=== PATIENT | female | born 1935 | race Caucasian/White ===

== ENCOUNTER 2019-02-24 21:29 | Observation (INO) ==
--- NOTE | 2019-02-24 22:09 | Emergency Department Note ---
ED Disposition Clinical Impression: Elevated troponin Dyspnea Qualifiers: Dyspnea type: dyspnea on exertion Qualified Code(s): R06.09 - Other forms of dyspnea Disposition: Admitted as Observation Condition on Discharge: Good - Critical Care Critical Care Time: No Attestation: On 02/24/19, the high probability of a clinically significant, sudden or life threatening deterioration of the following system(s) required my full and direct attention, intervention and personal management. The time I documented below is in addition to time spent performing reported procedures but includes the following listed in this critical care notation. Medical Decision Making - Medical Records Medical records reviewed: Yes: I reviewed the patient's medical records. - Emeterio Inquiry Pt receiving controlled substance: No Vital Signs: 02/24/19 21:52 Temperature 97.6 F Temperature Source Oral Pulse Rate [Right] 98 H Respiratory Rate 18 Blood Pressure [Right Arm] 137/70 Blood Pressure Mean [Right Arm] 92 Blood Pressure Source [Right Arm] Automatic Cuff Blood Pressure Position [Right Arm] Supine 02 Sat by Pulse Oximetry 95 Oxygen Delivery Method Room Air - Lab Data Lab results reviewed: Yes: I reviewed the patient's lab results. Lab Results 02/24/19 22:13: Specimen Source Right radial, O2 % Room air, ABG pH 7.47 H, ABG pCO2 26.7 L, ABG pO2 57.2 L, ABG HCO3 19.2 L, ABG Total CO2 20.0 L, ABG O2 Saturation 91, ABG Base Excess -4.4 L, Remigio Test Acceptable 02/24/19 22:35: Urine Color Yellow, Urine Appearance Clear, Urine pH 7.0, Ur Specific [place] 1.010, Urine Protein Negative, Urine Glucose (UA) Negative, Urine Ketones Negative, Urine Blood Negative, Urine Nitrate Negative, Urine Bilirubin Negative, Urine Urobilinogen 0.2, Ur Leukocyte Esterase Negative, Urine WBC Occasional, Ur Squamous Epith Cells 3-5, Urine Bacteria Trace 02/24/19 23:25: WBC 6.9, RBC 4.28, Hgb 13.5, Hct 42.1, MCV 98.4, MCH 31.5 H, MCHC 32.0, RDW 14.4, Plt Count 229, MPV 7.9, Neut % (Auto) 84.9 H, Lymph % (Auto) 10.6, [place] % (Auto) 4.4, Eos % (Auto) 0.0 L, Baso % (Auto) 0.0 L, Neut # (Auto) 5.8, Lymph # (Auto) 0.7, [place] # (Auto) 0.3, Eos # (Auto) 0.0, Baso # (Auto) 0.0, ESR 44 H 02/24/19 23:25: Sodium 142, Potassium 4.5, Chloride 107, Carbon Dioxide 25, Anion Gap 14.5, BUN 18, Creatinine 1.00, Estimated Creat Clear 63, Estimated GFR 53 L, Est GFR ( Amer) 64, Glucose 133 H, Calcium 9.9, Total Bilirubin 0.5, AST 31, ALT 34, Alkaline Phosphatase 90, Troponin I 0.37 H, C-Reactive Protein 1.5 H, Total Protein 7.2, Albumin 3.1 L, Globulin 4.1 H, [place] min/Globulin Ratio 0.8 L 02/24/19 23:25: B-Natriuretic Peptide 460 H Result diagrams: 02/24/19 23:25 02/24/19 23:25 Orders (Tests/Meds): ED MEDICATIONS Discontinued Medications Generic Name Dose Route Start Last Admin Trade Name Freq PRN Reason Stop Dose Admin Enoxaparin Sodium 100 mg 02/25/19 01:33 02/25/19 01:49 Lovenox 100mg/Ml Syringe SQ 02/25/19 01:34 100 mg ONCE ONE Administration Furosemide 40 mg 02/25/19 00:52 02/25/19 01:05 Lasix 40mg/4ml Vial IV 02/25/19 00:53 Not Given ONCE ONE ORDERS Category Date Time Status CT cervical spine wo con Stat Cat Scan 02/24/19 22:[address] head/brain wo con Stat Cat Scan 02/24/19 22:08 Taken XR chest AP Stat Exams 02/24/19 22:08 Taken XR pelvis 1-2V Stat Exams 02/24/19 22:08 Taken - Radiology Data #1 Image(s): Chest, Pelvis Image Reviewed: Yes I reviewed the patient's radiology image Preliminary Findings: No Fracture Seen - CT Data CT Scan: Head, C-Spine Time Received: 23:[address] Reviewed: Yes: I have viewed the radiologist's interpretation Preliminary Findings: Abnormal, No Fracture Seen (spondylosis) - ECG Data Tracing #1 Normal Sinus Rhythm: Yes Ischemic changes: non-specific ST-T wave changes - Physician Consults Physician Consulted: benjamin Reason -: Admission Resp/SOB HPI - General Chief Complaint: Shortness of Breath/Dyspnea Stated Complaint: SOB Time Seen by Provider: 02/24/19 21:55 Mode of Arrival: Ambulatory Source of Information: Patient Limitations: No Limitations Description of Symptoms (Recalled from ER Triage Doc. by RN): Pt states she had a syncopal episode this AM and SOA since this AM, pt seen by Dr alexander today and sent home with RX. Pt states she continues to have SOA - History of Present Illness pt had syncopal episode this am and was seen by pcp - she has sob this pm and had cxr as op and was neg and had sob with exertion tonight w/o syncope or chest pain and no fever or prod cough - had neg cath last yr - MD Complaint: shortness of breath Onset (ago): day(s) Severity: moderate Consistency/Duration: intermittent Known history of: asthma Associated symptoms: syncope Treatment prior to arrival: none - Related Data Home oxygen amount: none Home Medications Medication Instructions Recorded Confirmed allopurinol 300 mg tablet 300 mg PO DAILY 04/28/18 02/25/19 aspirin 81 mg tablet,delayed 81 mg PO DAILY 04/28/18 02/25/19 release atorvastatin 10 mg tablet 10 mg PO DAILY 04/28/18 02/25/19 coenzyme Q10 100 mg capsule 100 mg PO DAILY 04/28/18 02/25/19 conjugated estrogens 0.3 mg tablet 0.3 mg PO DAILY 04/28/18 02/25/19 dexlansoprazole 60 mg 30 mg PO DAILY 04/28/18 02/25/19 capsule,biphase delayed release fentanyl 25 mcg/hr transdermal 1 patch TRANSDERMA Q72H 04/28/18 02/25/19 patch ferrous sulfate 325 mg (65 mg 325 mg PO DAILY tab 04/28/18 02/25/19 iron) tablet gabapentin 300 mg capsule 600 mg PO BID 04/28/18 02/25/19 irbesartan 150 mg tablet 150 mg PO DAILY 04/28/18 02/25/19 levothyroxine 25 mcg tablet 25 mcg PO DAILY 04/28/18 02/25/19 mecobalamin (vitamin B12) 1,000 1,000 mcg SUBLINGUAL DAILY 04/28/18 02/25/19 mcg disintegrating tablet,sublingual mirabegron ER 50 mg 50 mg PO DAILY 04/28/18 02/25/19 tablet,extended release 24 hr montelukast 10 mg tablet 10 mg PO QPM 04/28/18 02/25/19 polyethylene glycol 3350 17 gram 17 g PO DAILY 04/28/18 02/25/19 oral powder packet potassium chloride ER 10 mEq 10 meq PO DAILY 04/28/18 02/25/19 tablet,extended release torsemide 20 mg tablet 20 mg PO DAILY 04/28/18 02/25/19 verapamil ER 240 mg 24 hr 240 mg PO DAILY 04/28/18 02/25/19 capsule,extended release raNITIdine HCl [Zantac] 150 mg PO DAILY 05/01/18 02/25/19 Doxercalciferol 0.5 mg PO DAILY 08/01/18 02/25/19 Donepezil HCl [Aricept 10mg 10 mg PO HS 02/25/19 02/25/19 tablet] Allergies Allergy/AdvReac Type Severity Reaction Status Date / Time bacitracin Allergy Mild I-RASH Verified 08/01/18 12:35 [From Neosporin ([id number])] chlorhexidine Allergy Mild I-RASH Verified 08/01/18 12:35 [From Hibiclens] clarithromycin [From Biaxin] Allergy Mild I-RASH Verified 08/01/18 12:35 ipratropium [From Atrovent] Allergy Mild Verified 08/01/18 12:35 neomycin Allergy Mild I-RASH Verified 08/01/18 12:35 [From Neosporin ([id number])] nitrofurantoin Allergy Mild ANAPHYLAXIS Verified 08/01/18 12:35 [From Macrodantin] paricalcitol [From Zemplar] Allergy Mild I-RASH Verified 08/01/18 12:35 Penicillins Allergy Mild ANAPHYLAXIS Verified 08/01/18 12:35 polymyxin B Allergy Mild I-RASH Verified 08/01/18 12:35 [From Neosporin ([id number])] povidone-iodine Allergy Mild I-RASH Verified 08/01/18 12:35 [From Betadine] soap [From Betadine] Allergy Mild I-RASH Verified 08/01/18 12:35 Sulfa (Sulfonamide Allergy Mild HEADACHES,R Verified 08/01/18 12:35 Antibiotics) DENZEL latex [LATEX] Allergy Unknown I-RASH Verified 08/01/18 12:35 trazodone Allergy Weakness Verified 08/01/18 12:36 Nuts (Food) Allergy Mild ANAPHYLAXIS Uncoded 06/23/18 10:11 [facility] History - Hepatitis A Screen Drug use history?: No High risk sexual behaviors?: No History of sexually transmitted infection?: No Currently employed?: No Childcare worker?: No Do you have indoor plumbing?: Yes Do you have electricity?: Yes Attestation statement:: This patient has been screened for Hepatitis A risk factors. I have reviewed the patient's past medical history: Yes Medical History: Reports:: Asthma, Chronic Obstructive Pulmonary Disease (COPD), Gastroesophageal Reflux Disease(GERD), Hyperlipidemia, Hypertension, Lung Disease, Renal Disease, Transient Ischemic Attacks (TIA), Ulcer Denies:: Diabetes Mellitus Type 1, Diabetes Mellitus Type 2, Internal Pacemaker, Seizures Other Medical History: Reports: Arthritis Comment: Morbid obesity, SCOTT Laterality Cases: Right: Carpal Tunnel Release, Bilateral: Arthroscopy Shoulder, Total Knee Replacement Other Surgeries: Yes: Cardiac Catheterization, Cholecystectomy, Hysterectomy- Partial. No: Pacemaker Comment: Back rx, TSR (shoulder) - Social History Smoking Status: Former smoker # Packs/Day (cigarettes): 1 #Yrs smoked (if former smoker): 4 Alcohol Intake: never Occupational Status: other Family Hx:: Tuberculosis, Coronary Artery Disease, Hypertension, Hyperlipidemia, Cancer ROS Obtained: Yes All systems reviewed & no additional complaints - Constitutional Constitutional: Denies fever(s) - Eyes Eyes: Denies change in vision - ENT Ears, Nose, Mouth, and Throat: Denies sore throat - Cardiovascular Cardiovascular: Denies chest pain, Reports dyspnea - Respiratory Respiratory: No cough, No non-productive cough, Yes dyspnea, Yes dyspnea on exertion, No coughing up blood, No pain on inspiration - Gastrointestinal Gastrointestingal: Denies: abdominal pain - Genitourinary Female Genitourinary: Denies hematuria - Musculoskeletal Musculoskeletal: Denies joint pain, Denies joint swelling - Integumentary/Breasts Skin/Breast: Denies rash - Neurologic Neurologic: Denies seizure-like activity Physical Exam - General General appearance: alert - Head Head exam: normocephalic - Eye Eye exam: Present: PERRL, EOMI - ENT ENT exam: Present: mucous membranes moist - Neck Neck exam: Present: trachea midline - Respiratory Respiratory exam: Present: normal lung sounds bilaterally. Absent: respiratory distress - Cardiovascular Cardiovascular exam: Present: regular rate, systolic murmur, +S4. Absent: rubs - Abdominal Exam Abdominal exam: Present: soft - Extremities Exam Extremities exam: Present: full ROM, pedal edema. Absent: calf tenderness - Neurological Exam Neurological exam: Present: alert, oriented X3, CN II-XII intact - Psychiatric Psychiatric exam: Present: normal affect - Skin Skin exam: Absent: rash
[2019-02-24 22:26] LABS: ABG Base Excess -4.4 mmol/L (-2.4-2.3); ABG HCO3 19.2 mmhg (22.0-26.0); ABG Oxygen Saturation 91 % (90-100); ABG PCO2 26.7 mmhg (35.0-45.0); ABG PH 7.47 mmol/L (7.35-7.45); ABG PO2 57.2 mmhg (80-100)
[2019-02-24 22:27] LABS: Allen's Test Acceptable; Oxygen Room Air %
[2019-02-24 22:40] LABS: Microscopic, Urine URINE MICROSCOPIC (MICROSCOPIC)
[2019-02-24 22:43] LABS: Appearance,Urine CLEAR (Clear); Bilirubin,Urine Negative (Negative); Blood, Urine Negative (Negative); Color,Urine YELLOW (Yellow); Glucose,Urine (UA) Negative (Negative); Ketones,Urine Negative (Negative); Leukocyte Esterase,Urine Negative (Negative); Protein,Urine Negative (Negative); Urobilinogen,Urine 0.2 EU/dl (0.2)
[2019-02-24 22:51] LABS: Bacteria,Urine Trace /lpf; WBC,Urine Occasional #/hpf (0-3)
[2019-02-24 23:35] LABS: Hematocrit 42.1 % (37.0-47.0); Hemoglobin 13.5 g/dL (12.2-16.2); Lymphocytes # 0.7 K/mm3 (0.7-4.5); Lymphocytes % 10.6 % (10-50); Mean Corpuscular Volume 98.4 fl (81-99); Mean Platelet Volume 7.9 fl (7.4-10.4); Monocytes # 0.3 K/mm3 (0.1-1.0); Monocytes % 4.4 % (1.7-9.3); Neutrophils # 5.8 K/mm3 (1.8-7.8); Neutrophils % 84.9 % (37.0-80.0); Platelet Count 229 K/mm3 (142-424); Red Blood Count 4.28 M/mm3 (4.20-5.40); Red Cell Distribution Width 14.4 % (11.5-17.5); White Blood Count 6.9 K/mm3 (4.8-10.8)
[2019-02-24 23:57] LABS: Albumin Level 3.1 gm/dL (3.4-5.0); Albumin/Globulin Ratio 0.8 (1.1-1.8); Anion Gap 14.5 mEq/L (5-15); Bilirubin,Total 0.5 mg/dL (0.2-1.0); C-Reactive Protein 1.5 mg/dL (0.0-0.9); Calcium 9.9 mg/dL (8.5-10.1); Globulin 4.1 gm/dl (1.3-3.2); Total Protein,Serum 7.2 gm/dL (6.4-8.2)
[2019-02-25 00:07] LABS: Erythrocyte Sedimentation Rate 44 mm/hr (0-30)
[2019-02-25 06:07] LABS: Hematocrit 38.6 % (37.0-47.0); Hemoglobin 12.5 g/dL (12.2-16.2); Lymphocytes # 1.2 K/mm3 (0.7-4.5); Lymphocytes % 14.3 % (10-50); Mean Corpuscular HGB Conc 32.5 g/dL (31.8-35.4); Mean Corpuscular Volume 99.1 fl (81-99); Mean Platelet Volume 7.8 fl (7.4-10.4); Monocytes # 0.4 K/mm3 (0.1-1.0); Monocytes % 5.4 % (1.7-9.3); Neutrophils # 6.5 K/mm3 (1.8-7.8); Neutrophils % 80.3 % (37.0-80.0); Platelet Count 205 K/mm3 (142-424); Red Cell Distribution Width 14.4 % (11.5-17.5); White Blood Count 8.1 K/mm3 (4.8-10.8)
[2019-02-25 06:23] LABS: INR 1.03 (0.9-1.1); Prothrombin Time 10.7 seconds (9.4-11.8)
[2019-02-25 06:32] LABS: Anion Gap 12.7 mEq/L (5-15); Calcium 9.2 mg/dL (8.5-10.1)
--- NOTE | 2019-02-25 08:44 | History & Physical Report ---
*Admission Date: 02/25/19 *Chief complaint: shortness of breath *History of present illness: Patient is a 83 year old woman who presented to our clinic yesterday with some weakness and dizziness. She was also having SOB episodes. She received a breathing treatment, steroids and abx in the clinic. CXR obtained at that time was unremarkable. However, she started to feel progressively worse and came to our ED yesterday night and was not feeling well. Work-up in the ED was unremarkable as well. However, there is a concern for PE given her moderate risk. CT was not obtainable in the ED secondary to nnot having venous access. So patient was admitted after loading dose of lovenox. During rounds this am, patient seems to be doing well. I will obtain CT of chest with PE protocol and US of carotid to rule out any pathological disease. Will give her Bumex for peripheral edema as she is allergic to lasix. [facility] History I have reviewed the patient's past medical history: Yes Medical History: Reports:: Asthma, Congestive Heart Failure, Chronic Obstructive Pulmonary Disease (COPD), Gastroesophageal Reflux Disease(GERD), Hyperlipidemia, Hypertension, Lung Disease, Renal Disease, Transient Ischemic Attacks (TIA), Ulcer Denies:: Cancer, Diabetes Mellitus Type 1, Diabetes Mellitus Type 2, Internal Pacemaker, MRSA, Seizures *Have you ever received a pneumonia vaccine?: No *Have you received a flu vaccine this season?: Yes Other Medical History: Reports: Arthritis Laterality Cases: Right: Arthroscopy Hip, Carpal Tunnel Release, Bilateral: Arthroscopy Shoulder, Total Knee Replacement Other Surgeries: Yes: Cardiac Catheterization, Cholecystectomy, Hysterectomy- Partial. No: Pacemaker Amputation: No Fractures: Yes - *Social History Smoking Status: Former smoker Tobacco Type: cigarettes # Packs/Day (cigarettes): 1 #Yrs smoked (if former smoker): 4 Alcohol Intake: never *Occupational Status:: other *Travel in the last 8 weeks: None - Psychiatric History Expresses thoughts of harming self/others: None Suicide Plan Description: No Plan Family Hx:: Asthma, Coronary Artery Disease, Hyperlipidemia, Hypertension, Kidney Disease, Stroke Review of Systems - Constitutional Reports lack of energy, Reports weakness - Eyes Denies change in vision, Denies itchy eyes - ENT Reports dry mouth, Denies change in voice, Denies difficulty swallowing - *Cardiovascular Reports shortness of breath, Reports shortness of breath with activity, Denies chest pain, Denies chest pain at rest, Denies chest pain with activity - *Respiratory Reports shortness of breath, Reports shortness of breath with activity, Denies change in phlegm color, Denies chest congestion, Denies cough - *Gastrointestinal Denies abdominal pain, Denies coffee ground vomit, Denies constipation - *Genitourinary Denies painful urination - *Musculoskeletal Reports joint pain (diffuse and multiple) - Integumentary/Breasts Denies bleeding lesions - *Neurologic Denies abnormal hearing, Denies seizure-like activity - Psychiatric Denies lack of enjoyment, Denies anxiety - Endocrine Denies excessive sweating - Hematologic/Lymphatic Denies easy bruising - Allergic/Immunologic Denies lip swelling Meds Home Medications Medication Instructions Recorded Confirmed Type allopurinol 300 mg tablet 300 mg PO DAILY 04/28/18 02/25/19 History aspirin 81 mg tablet,delayed 81 mg PO DAILY 04/28/18 02/25/19 History release coenzyme Q10 100 mg capsule 100 mg PO DAILY 04/28/18 02/25/19 History conjugated estrogens 0.3 mg tablet 0.3 mg PO DAILY 04/28/18 02/25/19 History fentanyl 25 mcg/hr transdermal 1 patch TRANSDERMA Q72H 04/28/18 02/25/19 History patch ferrous sulfate 325 mg (65 mg 325 mg PO DAILY tab 04/28/18 02/25/19 History iron) tablet irbesartan 150 mg tablet 150 mg PO DAILY 04/28/18 02/25/19 History levothyroxine 25 mcg tablet 25 mcg PO DAILY 04/28/18 02/25/19 History mecobalamin (vitamin B12) 1,000 1,000 mcg SUBLINGUAL DAILY 04/28/18 02/25/19 Hi story mcg disintegrating tablet,sublingual mirabegron ER 50 mg 50 mg PO DAILY 04/28/18 02/25/19 History tablet,extended release 24 hr montelukast 10 mg tablet 10 mg PO QPM 04/28/18 02/25/19 History potassium chloride ER 10 mEq 10 meq PO DAILY 04/28/18 02/25/19 History tablet,extended release verapamil ER 240 mg 24 hr 240 mg PO DAILY 04/28/18 02/25/19 History capsule,extended release raNITIdine HCl [Zantac] 150 mg PO DAILY 05/01/18 02/25/19 History Doxercalciferol 0.5 mg PO DAILY 08/01/18 02/25/19 History Atorvastatin Calcium [Atorvastatin 10 mg PO HS 02/25/19 02/25/19 History 20mg Tab] Bumetanide 1 mg PO DAILY 02/25/19 02/25/19 History Dexlansoprazole [Dexilant] 30 mg PO DAILY 02/25/19 02/25/19 History Donepezil HCl [Aricept 10mg 10 mg PO HS 02/25/19 02/25/19 History tablet] Gabapentin 600 mg PO BID 02/25/19 02/25/19 History Polyethylene Glycol 3350 [Miralax 17 gm PO DAILY 02/25/19 02/25/19 History Powder] Allergies Allergy/AdvReac Type Severity Reaction Status Date / Time nut - unspecified Allergy Intermediate Anaphylaxis Verified 02/25/19 09:11 bacitracin Allergy Mild I-RASH Verified 08/01/18 12:35 [From Neosporin ([id number])] chlorhexidine Allergy Mild I-RASH Verified 08/01/18 12:35 [From Hibiclens] clarithromycin [From Biaxin] Allergy Mild I-RASH Verified 08/01/18 12:35 ipratropium [From Atrovent] Allergy Mild Unknown Verified 02/25/19 09:11 allergy reaction neomycin Allergy Mild I-RASH Verified 08/01/18 12:35 [From Neosporin ([id number])] nitrofurantoin Allergy Mild ANAPHYLAXIS Verified 08/01/18 12:35 [From Macrodantin] paricalcitol [From Zemplar] Allergy Mild I-RASH Verified 08/01/18 12:35 Penicillins Allergy Mild ANAPHYLAXIS Verified 08/01/18 12:35 polymyxin B Allergy Mild I-RASH Verified 08/01/18 12:35 [From Neosporin ([id number])] povidone-iodine Allergy Mild I-RASH Verified 08/01/18 12:35 [From Betadine] soap [From Betadine] Allergy Mild I-RASH Verified 08/01/18 12:35 Sulfa (Sulfonamide Allergy Mild HEADACHES,R Verified 08/01/18 12:35 Antibiotics) DENZEL latex [LATEX] Allergy Unknown I-RASH Verified 08/01/18 12:35 trazodone Allergy Weakness Verified 08/01/18 12:36 Exam Vital signs and Labs for Last 24 Hours: Temp Pulse Resp BP Pulse Ox 97.7 F 60 18 129/87 97 02/25/19 02:53 02/25/19 04:00 02/25/19 02:53 02/25/19 02:53 02/25/19 02:53 Laboratory Results - last 24 hr 02/24/19 22:13: Specimen Source Right radial, O2 % Room air, ABG pH 7.47 H, ABG pCO2 26.7 L, ABG pO2 57.2 L, ABG HCO3 19.2 L, ABG Total CO2 20.0 L, ABG O2 Saturation 91, ABG Base Excess -4.4 L, Remigio Test Acceptable 02/24/19 22:35: Urine Color Yellow, Urine Appearance Clear, Urine pH 7.0, Ur Specific [place] 1.010, Urine Protein Negative, Urine Glucose (UA) Negative, Urine Ketones Negative, Urine Blood Negative, Urine Nitrate Negative, Urine Bilirubin Negative, Urine Urobilinogen 0.2, Ur Leukocyte Esterase Negative, Urine WBC Occasional, Ur Squamous Epith Cells 3-5, Urine Bacteria Trace 02/24/19 23:25: WBC 6.9, RBC 4.28, Hgb 13.5, Hct 42.1, MCV 98.4, MCH 31.5 H, MCHC 32.0, RDW 14.4, Plt Count 229, MPV 7.9, Neut % (Auto) 84.9 H, Lymph % (Auto) 10.6, [place] % (Auto) 4.4, Eos % (Auto) 0.0 L, Baso % (Auto) 0.0 L, Neut # (Auto) 5.8, Lymph # (Auto) 0.7, [place] # (Auto) 0.3, Eos # (Auto) 0.0, Baso # (Auto) 0.0, ESR 44 H 02/24/19 23:25: Sodium 142, Potassium 4.5, Chloride 107, Carbon Dioxide 25, Anion Gap 14.5, BUN 18, Creatinine 1.00, Estimated Creat Clear 63, Estimated GFR 53 L, Est GFR ( Amer) 64, Glucose 133 H, Calcium 9.9, Total Bilirubin 0.5, AST 31, ALT 34, Alkaline Phosphatase 90, Troponin I 0.37 H, C-Reactive Protein 1.5 H, Total Protein 7.2, Albumin 3.1 L, Globulin 4.1 H, Albumin/Globulin Ratio 0.8 L 02/24/19 23:25: B-Natriuretic Peptide 460 H 02/25/19 05:20: Sodium 143, Potassium 4.7, Chloride 108 H, Carbon Dioxide 27, Anion Gap 12.7, BUN 18, Creatinine 0.87, Estimated Creat Clear 64, Estimated GFR 62, Est GFR ( Amer) 75, Glucose 119 H, Calcium 9.2, Troponin I 0.27 H 02/25/19 05:20: WBC 8.1, RBC 3.90 L, Hgb 12.5, Hct 38.6, MCV 99.1 H, MCH 32.2 H, MCHC 32.5, RDW 14.4, Plt Count 205, MPV 7.8, Neut % (Auto) 80.3 H, Lymph % (Auto) 14.3, [place] % (Auto) 5.4, Eos % (Auto) 0.0 L, Baso % (Auto) 0.0 L, Neut # (Auto) 6.5, Lymph # (Auto) 1.2, [place] # (Auto) 0.4, Eos # (Auto) 0.0, Baso # (Auto) 0.0 02/25/19 05:20: PT 10.7, INR 1.03 I & O for Last 24 hours: Intake & Output 02/22/19 02/23/19 02/24/19 02/25/19 11:59 11:59 11:59 11:59 Intake Total 161 / 161 Output Total 200 / 200 Balance -39 / -39 Weight 218 lb 4 oz - *Routine HEENT Exam Head: Present: normocephalic Eye: Present: EOMI, PERRL ENT: Present: mucous membranes moist - *Routine Neck Exam Present: supple. Absent: lymphadenopathy - *Routine Respiratory Exam Present: CTA bilaterally - *Routine Cardiovascular Exam Present: RRR - *Routine Abdominal Exam Present: soft, normoactive bowel sounds. Absent: tenderness - *Routine Extremities Exam Present: edema (2+ pitting). Absent: cyanosis, clubbing - *Routine Skin Exam Present: warm. Absent: rash - *Routine Neurological Exam Present: alert, oriented X3 Assessment and Plan (1) SOB (shortness of breath) Current visit: Yes Status: Acute Category: Medical Code(s): R06.02 - Shortness of breath (2) Chronic pain syndrome Current visit: Yes Status: Acute Category: Medical Code(s): G89.4 - Chronic pain syndrome (3) GERD (gastroesophageal reflux disease) Current visit: No Status: Acute Qualifiers: Esophagitis presence: with esophagitis Qualified Code(s): K21.0 - Gastro- esophageal reflux disease with esophagitis Category: Medical Code(s): K21.9 - Gastro-esophageal reflux disease without esophagitis (4) At high risk for pulmonary embolism Current visit: Yes Status: Acute Category: Medical Code(s): Z91.89 - Other specified personal risk factors, not elsewhere classified (5) Essential hypertension Current visit: Yes Status: Acute Category: Medical Code(s): I10 - Essential (primary) hypertension (6) Hyperlipemia Current visit: Yes Status: Acute Category: Medical Code(s): E78.5 - Hyperlipidemia, unspecified (7) Hypothyroid Current visit: Yes Status: Acute Category: Medical Code(s): E03.9 - Hypothyroidism, unspecified (8) Allergic rhinitis Current visit: Yes Status: Acute Category: Medical Code(s): J30.9 - Allergic rhinitis, unspecified (9) Peripheral edema Current visit: Yes Status: Acute Category: Medical Code(s): R60.9 - Edema, unspecified - Assessment and plan all Dx Assessment and Plan for all problems:: will continue current meds, give bumex for edema, get imaging done today. Possible dc today or tomorrow.
--- NOTE | 2019-02-25 09:36 | Pharmacy Consult Notes ---
[facility] Pharmacy VTE Monitoring - Patient Demographics Admission date: 02/25/19 Report Date: 02/25/19 Time: 09:36 Allergies/Adverse Reactions: Patient Allergies nut - unspecified Allergy (Intermediate, Verified 02/25/19 09:11) Anaphylaxis bacitracin [From Neosporin ([id number])] Allergy (Mild, Verified 08/01/18 12:35) I-RASH chlorhexidine [From Hibiclens] Allergy (Mild, Verified 08/01/18 12:35) I-RASH clarithromycin [From Biaxin] Allergy (Mild, Verified 08/01/18 12:35) I-RASH ipratropium [From Atrovent] Allergy (Mild, Verified 02/25/19 09:11) Unknown allergy reaction neomycin [From Neosporin ([id number])] Allergy (Mild, Verified 08/01/18 12:35) I-RASH nitrofurantoin [From Macrodantin] Allergy (Mild, Verified 08/01/18 12:35) ANAPHYLAXIS paricalcitol [From Zemplar] Allergy (Mild, Verified 08/01/18 12:35) I-RASH Penicillins Allergy (Mild, Verified 08/01/18 12:35) ANAPHYLAXIS polymyxin B [From Neosporin ([id number])] Allergy (Mild, Verified 08/01/18 12:35) I-RASH povidone-iodine [From Betadine] Allergy (Mild, Verified 08/01/18 12:35) I-RASH soap [From Betadine] Allergy (Mild, Verified 08/01/18 12:35) I-RASH Sulfa (Sulfonamide Antibiotics) Allergy (Mild, Verified 08/01/18 12:35) HEADACHES,RASH latex [LATEX] Allergy (Unknown, Verified 08/01/18 12:35) I-RASH trazodone Allergy (Verified 08/01/18 12:36) Weakness Height: 1.6 m Weight: 98.997 kg Patient Problems: Current Active Problems Dyspnea (Acute) Elevated troponin (Acute) - VTE Risk Labs: VTE Related Lab Results Hgb 12.5 g/dL (12.2-16.2) 02/25/19 05:20 Hct 38.6 % (37.0-47.0) 02/25/19 05:20 Plt Count 205 K/mm3 (142-424) 02/25/19 05:20 PT 10.7 seconds (9.4-11.8) 02/25/19 05:20 INR 1.03 (0.9-1.1) 02/25/19 05:20 BUN 18 mg/dL (7-18) 02/25/19 05:20 Creatinine 0.87 mg/dL (0.55-1.02) 02/25/19 05:20 Estimated Creat Clear 64 mL/min (50-200) 02/25/19 05:20 VTE Score: 12 VTE Risk Level: Moderate Risk - Prophylaxis Types of VTE Prophylaxis: TEDS Knee High (LAURA HOSE ORDER PLACED)
--- NOTE | 2019-02-25 16:09 | Discharge Summary ---
General - General Admission date:: 02/25/19 Discharge date: 02/25/19 HPI HPI: Patient is a 83 year old woman who presented to our clinic yesterday with some weakness and dizziness. She was also having SOB episodes. She received a breathing treatment, steroids and abx in the clinic. CXR obtained at that time was unremarkable. However, she started to feel progressively worse and came to our ED yesterday night and was not feeling well. Work-up in the ED was unremarkable as well. However, there is a concern for PE given her moderate risk. CT was not obtainable in the ED secondary to nnot having venous access. So patient was admitted after loading dose of lovenox. During rounds this am, patient seems to be doing well. I will obtain CT of chest with PE protocol and US of carotid to rule out any pathological disease. Will give her Bumex for peripheral edema as she is allergic to lasix. Hospital Course Hospital Course: Patient did well overnight with diuresis for her mild vascular congestion. She tolerated 96% on RA and did not qualify for oxygen during this stay. She was discharged home as all her work-up was negative here. She is to f/u with me Wednesday in office. She was advised to increase her Bumex to BID. Objective Vital signs: Temp Pulse Resp BP Pulse Ox 97.7 F 60 16 120/51 L 96 02/25/19 10:04 02/25/19 12:00 02/25/19 10:04 02/25/19 10:04 02/25/19 12:12 - *Routine HEENT Exam Head: Present: normocephalic Eye: Present: EOMI, PERRL ENT: Present: mucous membranes moist - *Routine Neck Exam Present: supple, full ROM - *Routine Respiratory Exam Present: CTA bilaterally - *Routine Cardiovascular Exam Present: RRR - *Routine Abdominal Exam Present: soft, normoactive bowel sounds - *Routine Extremities Exam Present: edema (1+ pitting edema). Absent: cyanosis - *Routine Skin Exam Present: intact. Absent: erythema - *Routine Neurological Exam Present: alert, oriented X3 Results Labs on day of discharge: Labs from last 24 hours 02/25/19 02/25/19 02/25/19 10:00 05:20 05:20 WBC 8.1 RBC 3.90 L Hgb 12.5 Hct 38.6 MCV 99.1 H MCH 32.2 H MCHC 32.5 RDW 14.4 Plt Count 205 MPV 7.8 Neut % (Auto) 80.3 H Lymph % (Auto) 14.3 [place] % (Auto) 5.4 Eos % (Auto) 0.0 L Baso % (Auto) 0.0 L Neut # (Auto) 6.5 Lymph # (Auto) 1.2 [place] # (Auto) 0.4 Eos # (Auto) 0.0 Baso # (Auto) 0.0 ESR PT 10.7 INR 1.03 Specimen Source O2 % ABG pH ABG pCO2 ABG pO2 ABG HCO3 ABG Total CO2 ABG O2 Saturation ABG Base Excess Remigio Test Sodium Potassium Chloride Carbon Dioxide Anion Gap BUN Creatinine Estimated Creat Clear Estimated GFR Est GFR ( Amer) Glucose Calcium Total Bilirubin AST ALT Alkaline Phosphatase Troponin I 0.23 H C-Reactive Protein B-Natriuretic Peptide Total Protein Albumin Globulin Albumin/Globulin Ratio Urine Color Urine Appearance Urine pH Ur Specific [place] Urine Protein Urine Glucose (UA) Urine Ketones Urine Blood Urine Nitrate Urine Bilirubin Urine Urobilinogen Ur Leukocyte Esterase Urine WBC Ur Squamous Epith Cells Urine Bacteria 02/25/19 02/24/19 02/24/19 05:20 23:25 23:25 WBC RBC Hgb Hct MCV MCH MCHC RDW Plt Count MPV Neut % (Auto) Lymph % (Auto) [place] % (Auto) Eos % (Auto) Baso % (Auto) Neut # (Auto) Lymph # (Auto) [place] # (Auto) Eos # (Auto) Baso # (Auto) ESR PT INR Specimen Source O2 % ABG pH ABG pCO2 ABG pO2 ABG HCO3 ABG Total CO2 ABG O2 Saturation ABG Base Excess Remigio Test Sodium 143 142 Potassium 4.7 4.5 Chloride 108 H 107 Carbon Dioxide 27 25 Anion Gap 12.7 14.5 BUN 18 18 Creatinine 0.87 1.00 Estimated Creat Clear 64 63 Estimated GFR 62 53 L Est GFR ( Amer) 75 64 Glucose 119 H 133 H Calcium 9.2 9.9 Total Bilirubin 0.5 AST 31 ALT 34 Alkaline Phosphatase 90 Troponin I 0.27 H 0.37 H C-Reactive Protein 1.5 H B-Natriuretic Peptide 460 H Total Protein 7.2 Albumin 3.1 L Globulin 4.1 H Albumin/Globulin Ratio 0.8 L Urine Color Urine Appearance Urine pH Ur Specific [place] Urine Protein Urine Glucose (UA) Urine Ketones Urine Blood Urine Nitrate Urine Bilirubin Urine Urobilinogen Ur Leukocyte Esterase Urine WBC Ur Squamous Epith Cells Urine Bacteria 02/24/19 02/24/19 02/24/19 23:25 22:35 22:13 WBC 6.9 RBC 4.28 Hgb 13.5 Hct 42.1 MCV 98.4 MCH 31.5 H MCHC 32.0 RDW 14.4 Plt Count 229 MPV 7.9 Neut % (Auto) 84.9 H Lymph % (Auto) 10.6 [place] % (Auto) 4.4 Eos % (Auto) 0.0 L Baso % (Auto) 0.0 L Neut # (Auto) 5.8 Lymph # (Auto) 0.7 [place] # (Auto) 0.3 Eos # (Auto) 0.0 Baso # (Auto) 0.0 ESR 44 H PT INR Specimen Source Right radial O2 % Room air ABG pH 7.47 H ABG pCO2 26.7 L ABG pO2 57.2 L ABG HCO3 19.2 L ABG Total CO2 20.0 L ABG O2 Saturation 91 ABG Base Excess -4.4 L Remigio Test Acceptable Sodium Potassium Chloride Carbon Dioxide Anion Gap BUN Creatinine Estimated Creat Clear Estimated GFR Est GFR ( Amer) Glucose Calcium Total Bilirubin AST ALT Alkaline Phosphatase Troponin I C-Reactive Protein B-Natriuretic Peptide Total Protein Albumin Globulin Albumin/Globulin Ratio Urine Color Yellow Urine Appearance Clear Urine pH 7.0 Ur Specific [place] 1.010 Urine Protein Negative Urine Glucose (UA) Negative Urine Ketones Negative Urine Blood Negative Urine Nitrate Negative Urine Bilirubin Negative Urine Urobilinogen 0.2 Ur Leukocyte Esterase Negative Urine WBC Occasional Ur Squamous Epith Cells 3-5 Urine Bacteria Trace DS: Diagnosis - Discharge Diagnosis (1) Peripheral edema Status: Acute (2) SOB (shortness of breath) Status: Acute (3) Chronic pain syndrome Status: Acute (4) GERD (gastroesophageal reflux disease) Status: Acute (5) Essential hypertension Status: Acute (6) Hyperlipemia Status: Acute (7) Hypothyroid Status: Acute (8) Allergic rhinitis Status: Acute Discharge Plan - Patient Discharge Instructions ACTIVITY: Ambulate as tolerated DIET: continue same diet Patient Instructions: Cardiac Troponin, DI for Heart Failure, DI for Shortness of Breath - Follow up Plan Follow up with: Viktoria Richards MD [Primary Care Provider] - (already has appt on Wednesday with me) Disposition: Home, Self-Fpc Medications: Home Medications Medication Instructions Recorded Confirmed Type allopurinol 300 mg tablet 300 mg PO DAILY 04/28/18 02/25/19 History aspirin 81 mg tablet,delayed 81 mg PO DAILY 04/28/18 02/25/19 History release coenzyme Q10 100 mg capsule 100 mg PO DAILY 04/28/18 02/25/19 History conjugated estrogens 0.3 mg tablet 0.3 mg PO DAILY 04/28/18 02/25/19 History fentanyl 25 mcg/hr transdermal 1 patch TRANSDERMA Q72H 04/28/18 02/25/19 History patch ferrous sulfate 325 mg (65 mg 325 mg PO DAILY tab 04/28/18 02/25/19 History iron) tablet irbesartan 150 mg tablet 150 mg PO DAILY 04/28/18 02/25/19 History levothyroxine 25 mcg tablet 25 mcg PO DAILY 04/28/18 02/25/19 History mecobalamin (vitamin B12) 1,000 1,000 mcg SUBLINGUAL DAILY 04/28/18 02/25/19 History mcg disintegrating tablet,sublingual mirabegron ER 50 mg 50 mg PO DAILY 04/28/18 02/25/19 History tablet,extended release 24 hr montelukast 10 mg tablet 10 mg PO HS 04/28/18 02/25/19 History potassium chloride ER 10 mEq 10 meq PO DAILY 04/28/18 02/25/19 History tablet,extended release verapamil ER 240 mg 24 hr 240 mg PO DAILY 04/28/18 02/25/19 History capsule,extended release raNITIdine HCl [Zantac 150mg] 150 mg PO DAILY 05/01/18 02/25/19 History Doxercalciferol 0.5 mg PO DAILY 08/01/18 02/25/19 History Atorvastatin Calcium [Atorvastatin 10 mg PO HS 02/25/19 02/25/19 History 20mg Tab] Bumetanide 1 mg PO BID #0 02/25/19 02/25/19 Rx Dexlansoprazole [Dexilant] 30 mg PO DAILY 02/25/19 02/25/19 History Donepezil HCl [Aricept 10mg 10 mg PO HS 02/25/19 02/25/19 History tablet] Gabapentin 600 mg PO BID 02/25/19 02/25/19 History Polyethylene Glycol 3350 [Miralax 17 gm PO DAILY 02/25/19 02/25/19 History Powder] Prescriptions/Medication Reconciliation: Continued allopurinol 300 mg tablet 300 mg PO DAILY aspirin 81 mg tablet,delayed release 81 mg PO DAILY coenzyme Q10 100 mg capsule 100 mg PO DAILY levothyroxine 25 mcg tablet 25 mcg PO DAILY potassium chloride ER 10 mEq tablet,extended release 10 meq PO DAILY irbesartan 150 mg tablet 150 mg PO DAILY ferrous sulfate 325 mg (65 mg iron) tablet 325 mg PO DAILY tab montelukast 10 mg tablet 10 mg PO HS verapamil ER 240 mg 24 hr capsule,extended release 240 mg PO DAILY mecobalamin (vitamin B12) 1,000 mcg disintegrating tablet,sublingual 1,000 mcg SUBLINGUAL DAILY fentanyl 25 mcg/hr transdermal patch 1 patch TRANSDERMA Q72H mirabegron ER 50 mg tablet,extended release 24 hr 50 mg PO DAILY conjugated estrogens 0.3 mg tablet 0.3 mg PO DAILY raNITIdine HCl [Zantac 150mg] 150 mg PO DAILY Doxercalciferol 0.5 mg PO DAILY Atorvastatin Calcium [Atorvastatin 20mg Tab] 10 mg PO HS Gabapentin 600 mg PO BID Polyethylene Glycol 3350 [Miralax Powder] 17 gm PO DAILY Donepezil HCl [Aricept 10mg tablet] 10 mg PO HS Dexlansoprazole [Dexilant] 30 mg PO DAILY Changed Bumetanide 1 mg PO BID #0 - Problem Reconciliation Problems Reviewed?: Yes
== END 2019-02-25 15:27 | disposition home or self-care (01) ==
LOC: ER 21:29 → 2ND 21:29
PROVIDERS: ADMIT Emergency Medicine; ATTEND Emergency Medicine
DX: E03.9 Hypothyroidism, unspecified; Z79.82 Long term (current) use of aspirin; I10 Essential (primary) hypertension; G89.4 Chronic pain syndrome; J44.1 Chronic obstructive pulmonary disease with (acute) exacerbation; R60.1 Generalized edema; Z87.891 Personal history of nicotine dependence; Z86.73 Personal history of transient ischemic attack (TIA), and cerebral infarction without residual deficits; K21.9 Gastro-esophageal reflux disease without esophagitis; N28.9 Disorder of kidney and ureter, unspecified; E78.5 Hyperlipidemia, unspecified; I50.9 Heart failure, unspecified; Z79.899 Other long term (current) drug therapy
CPT/HCPCS: 36415; 70450; 71010; 71045; 71275; 72125; 72170; 80048; 80053; 81001; 82803; 83880; 84484; 85025; 85610; 85651; 86140; 93005; 96372; 99284; G0378; Q9967

== ENCOUNTER 2019-03-06 08:13 | Inpatient (IN) ==
--- NOTE | 2019-03-06 08:36 | Emergency Department Note ---
ED Disposition Clinical Impression: Pulmonary embolism, bilateral, Dyspnea Disposition: Admitted as Observation Condition on Discharge: Good Referrals: Viktoria Richards MD [Primary Care Provider] - Time of Disposition: 11:00 - Critical Care Critical Care Time: No Attestation: On , the high probability of a clinically significant, sudden or life threatening deterioration of the following system(s) required my full and direct attention, intervention and personal management. The time I documented below is in addition to time spent performing reported procedures but includes the following listed in this critical care notation. Medical Decision Making - Medical Records Medical records reviewed: Yes: I reviewed the patient's medical records. - Emeterio Inquiry Pt receiving controlled substance: No Emeterio was queried for this patient: No Vital Signs: 03/06/19 08:29 03/06/19 09:07 03/06/19 10:16 Temperature 99.4 F Temperature Source Oral Pulse Rate [Right Brachial] 89 83 76 Respiratory Rate 27 H Blood Pressure [Right Arm] 159/67 H 155/74 H 119/54 L Blood Pressure Mean [Right Arm] 97 101 75 Blood Pressure Source [Right Arm] Automatic Cuff Blood Pressure Position [Right Arm] Sitting 02 Sat by Pulse Oximetry 86 L 98 98 Oxygen Delivery Method Room Air - Lab Data Lab results reviewed: Yes: I reviewed the patient's lab results. Lab Results 03/06/19 08:27: WBC 13.0 H, RBC 4.34, Hgb 13.8, Hct 42.9, MCV 98.8, MCH 31.8 H, MCHC 32.2, RDW 14.4, Plt Count 177, MPV 8.2, Neut % (Auto) 81.1 H, Lymph % (Auto) 13.2, [place] % (Auto) 5.3, Eos % (Auto) 0.2, Baso % (Auto) 0.2, Neut # (Auto) 10.5 H, Lymph # (Auto) 1.7, [place] # (Auto) 0.7, Eos # (Auto) 0.0, Baso # (Auto) 0.0 03/06/19 08:27: D-Dimer 4300 H* 03/06/19 08:27: Sodium 140, Potassium 3.8, Chloride 101, Carbon Dioxide 33 H, Anion Gap 9.8, BUN 15, Creatinine 1.05 H, Estimated Creat Clear 60, Estimated GFR 50 L, Est GFR ( Amer) 60, Glucose 121 H, Calcium 9.8, Total Bilirubin 1.1 H, AST 13 L, ALT 21, Alkaline Phosphatase 86, Troponin I < 0.02, Total Protein 7.2, Albumin 2.9 L, Globulin 4.3 H, Albumin/Globulin Ratio 0.7 L, Amylase 22 L 03/06/19 08:27: Lipase 73 03/06/19 09:13: Lactate 1.6 Result diagrams: 03/06/19 08:27 03/06/19 08:27 Orders (Tests/Meds): ED MEDICATIONS Generic Name Dose Route Start Last Admin Trade Name Frejuliana PRN Reason Stop Dose Admin Heparin Sodium (Porcine) 5,000 unit 03/06/19 11:00 Heparin Sodium 5,000 Units/Ml Vial IV 03/06/19 11:01 ONCE ONE Heparin Sodium/Dextrose 500 mls @ 26 mls/hr 03/06/19 11:00 Heparin 25,000 Units In D5w 500ml Premix IV 04/05/19 10:59 .[id number] [facility] 1,300 UNITS/HR Sodium Chloride 10 ml 03/06/19 09:58 03/06/19 09:59 Rad-Saline Flush 10ml Syringe IV 04/05/19 09:57 10 ml NEEDED PRN Administration Maintain IV Site Discontinued Medications Generic Name Dose Route Start Last Admin Trade Name Freq PRN Reason Stop Dose Admin Ioversol 70 ml 03/06/19 09:58 03/06/19 09:59 Rad-Optiray 350 100ml Vial IV 03/06/19 09:59 70 ml ONCE ONE Administration Protocol Ketorolac Tromethamine 30 mg 03/06/19 08:35 03/06/19 09:06 Toradol 30mg/Ml Vial IV 03/06/19 08:36 30 mg ONCE ONE Administration Miscellaneous 1 each 03/06/19 11:00 Heparin Drip Consult Request * 04/05/19 10:59 CONSULT PHARMACY [facility] Ondansetron HCl 4 mg 03/06/19 08:35 03/06/19 09:06 Zofran 4mg/2ml Vial IV 03/06/19 08:36 4 mg ONCE ONE Administration ORDERS Category Date Time Status UA [Urinalysis and Microscopic] Stat Lab 03/06/19 08:35 Ordered Blood Culture Stat Micro 03/06/19 08:52 Received - Physician Consults Physician Consulted: dian Reason -: Admission Comment/Response: obs, heparin General Adult HPI - General Stated complaint: SOA Time Seen by Provider: 03/06/19 08:34 Mode of Arrival: Family Vehicle Source of Information: Patient, Relative Limitations: No Limitations - History of Present Illness HPI narrative: last night had hard time breathing, shortness of breath and pain beneath xiphoid process - Related Data Home Medications Medication Instructions Recorded Confirmed allopurinol 300 mg tablet 300 mg PO DAILY 04/28/18 03/06/19 aspirin 81 mg tablet,delayed 81 mg PO DAILY 04/28/18 03/06/19 release coenzyme Q10 100 mg capsule 100 mg PO DAILY 04/28/18 03/06/19 conjugated estrogens 0.3 mg tablet 0.3 mg PO DAILY 04/28/18 03/06/19 fentanyl 25 mcg/hr transdermal 1 patch TRANSDERMA Q72H 04/28/18 03/06/19 patch ferrous sulfate 325 mg (65 mg 325 mg PO DAILY tab 04/28/18 03/06/19 iron) tablet irbesartan 150 mg tablet 150 mg PO DAILY 04/28/18 03/06/19 levothyroxine 25 mcg tablet 25 mcg PO DAILY 04/28/18 03/06/19 mecobalamin (vitamin B12) 1,000 1,000 mcg SUBLINGUAL DAILY 04/28/18 03/06/19 mcg disintegrating tablet,sublingual mirabegron ER 50 mg 50 mg PO DAILY 04/28/18 03/06/19 tablet,extended release 24 hr montelukast 10 mg tablet 10 mg PO HS 04/28/18 03/06/19 potassium chloride ER 10 mEq 10 meq PO DAILY 04/28/18 03/06/19 tablet,extended release verapamil ER 240 mg 24 hr 240 mg PO DAILY 04/28/18 03/06/19 capsule,extended release raNITIdine HCl [Zantac 150mg] 150 mg PO DAILY 05/01/18 03/06/19 Doxercalciferol 0.5 mg PO DAILY 08/01/18 03/06/19 Atorvastatin Calcium [Atorvastatin 10 mg PO HS 02/25/19 03/06/19 20mg Tab] Dexlansoprazole [Dexilant] 30 mg PO DAILY 02/25/19 03/06/19 Donepezil HCl [Aricept 10mg 10 mg PO HS 02/25/19 03/06/19 tablet] Gabapentin 600 mg PO BID 02/25/19 03/06/19 Polyethylene Glycol 3350 [Miralax 17 gm PO DAILY 02/25/19 03/06/19 Powder] Previous Rx's Medication Instructions Recorded Bumetanide 1 mg PO BID #0 02/25/19 Allergies Allergy/AdvReac Type Severity Reaction Status Date / Time nut - unspecified Allergy Intermediate Anaphylaxis Verified 02/25/19 09:11 bacitracin Allergy Mild I-RASH Verified 08/01/18 12:35 [From Neosporin ([id number])] chlorhexidine Allergy Mild I-RASH Verified 08/01/18 12:35 [From Hibiclens] clarithromycin [From Biaxin] Allergy Mild I-RASH Verified 08/01/18 12:35 ipratropium [From Atrovent] Allergy Mild Unknown Verified 02/25/19 09:11 allergy reaction neomycin Allergy Mild I-RASH Verified 08/01/18 12:35 [From Neosporin ([id number])] nitrofurantoin Allergy Mild ANAPHYLAXIS Verified 08/01/18 12:35 [From Macrodantin] paricalcitol [From Zemplar] Allergy Mild I-RASH Verified 08/01/18 12:35 Penicillins Allergy Mild ANAPHYLAXIS Verified 08/01/18 12:35 polymyxin B Allergy Mild I-RASH Verified 08/01/18 12:35 [From Neosporin ([id number])] povidone-iodine Allergy Mild I-RASH Verified 08/01/18 12:35 [From Betadine] soap [From Betadine] Allergy Mild I-RASH Verified 08/01/18 12:35 Sulfa (Sulfonamide Allergy Mild HEADACHES,R Verified 08/01/18 12:35 Antibiotics) DENZEL latex [LATEX] Allergy Unknown I-RASH Verified 08/01/18 12:35 trazodone Allergy Weakness Verified 08/01/18 12:36 [facility] History - Hepatitis A Screen Attestation statement:: This patient has been screened for Hepatitis A risk factors. I have reviewed the patient's past medical history: Yes Medical History: Reports:: Asthma, Congestive Heart Failure, Chronic Obstructive Pulmonary Disease (COPD), Gastroesophageal Reflux Disease(GERD), Hy perlipidemia, Hypertension, Lung Disease, Renal Disease, Transient Ischemic Attacks (TIA), Ulcer Denies:: Cancer, Diabetes Mellitus Type 1, Diabetes Mellitus Type 2, Internal Pacemaker, MRSA, Seizures Other Medical History: Reports: Arthritis Comment: Morbid obesity, SCOTT Laterality Cases: Right: Arthroscopy Hip, Carpal Tunnel Release, Bilateral: Arthroscopy Shoulder Other Surgeries: Yes: Cardiac Catheterization, Cholecystectomy, Hysterectomy- Partial. No: Pacemaker Amputation: No Fractures: Yes Comment: Back rx, TSR (shoulder) - Social History Smoking Status: Former smoker Tobacco Type: cigarettes # Packs/Day (cigarettes): 1 #Yrs smoked (if former smoker): 4 Alcohol Intake: never Occupational Status: other Family Hx:: Asthma, Coronary Artery Disease, Hyperlipidemia, Hypertension, Kidney Disease, Stroke ROS Obtained: Yes All systems reviewed & no additional complaints - Constitutional Constitutional: Reports chills, Reports fever(s) - Cardiovascular Cardiovascular: Denies chest pain, Denies chest pain at rest, Reports dyspnea, Reports dyspnea on exertion, Reports shortness of breath when lying down, Reports shortness of breath causing sudden awakening - Respiratory Respiratory: Yes dyspnea, Yes dyspnea on exertion, No excessive phlegm production - Gastrointestinal Gastrointestingal: Reports: abdominal pain. Denies: diarrhea, vomiting - Genitourinary Female Genitourinary: Reports flank pain - Integumentary/Breasts Skin/Breast: Reports rash, Denies skin pain - Hematologic/Lymphatic Henatologic/Lymphatic: Reports easy bleeding, Reports easy bruising Physical Exam - General General appearance: alert, in distress, obese - Head Head exam: atraumatic, normocephalic, normal inspection - Eye Eye exam: Present: normal appearance, PERRL, EOMI - ENT ENT exam: Present: normal exam, normal oropharynx, mucous membranes moist, TM's normal bilaterally, normal external ear exam - Chest Chest inspection: Present: normal inspection, symmetric chest wall rise. Absent: tenderness - Respiratory Respiratory exam: Present: normal lung sounds bilaterally. Absent: respiratory distress - Cardiovascular Cardiovascular exam: Present: regular rate, normal rhythm. Absent: JVD - Abdominal Exam Abdominal exam: Present: tenderness. Absent: soft, organomegaly Abdominal tenderness: Present: epigastrium - Extremities Exam Extremities exam: Present: normal inspection, full ROM, normal capillary refill. Absent: calf tenderness - Neurological Exam Neurological exam: Present: alert, oriented X3 - Skin Skin exam: Present: warm - Lymphatic Lymphatic Findings: no adenopathy
[2019-03-06 08:40] LABS: Basophils % 0.2 % (0.1-2.0); Eosinophils % 0.2 % (0.1-12.0); Hematocrit 42.9 % (37.0-47.0); Hemoglobin 13.8 g/dL (12.2-16.2); Lymphocytes # 1.7 K/mm3 (0.7-4.5); Lymphocytes % 13.2 % (10-50); Mean Corpuscular HGB Conc 32.2 g/dL (31.8-35.4); Mean Corpuscular Volume 98.8 fl (81-99); Mean Platelet Volume 8.2 fl (7.4-10.4); Monocytes # 0.7 K/mm3 (0.1-1.0); Monocytes % 5.3 % (1.7-9.3); Neutrophils # 10.5 K/mm3 (1.8-7.8); Neutrophils % 81.1 % (37.0-80.0); Platelet Count 177 K/mm3 (142-424); Red Blood Count 4.34 M/mm3 (4.20-5.40); Red Cell Distribution Width 14.4 % (11.5-17.5)
[2019-03-06 08:53] LABS: Alanine Aminotransferase 21 U/L (12-78); Albumin Level 2.9 gm/dL (3.4-5.0); Albumin/Globulin Ratio 0.7 (1.1-1.8); Alkaline Phosphatase 86 U/L (46-116); Amylase 22 U/L (25-115); Anion Gap 9.8 mEq/L (5-15); Aspartate Amino Transferase 13 U/L (15-37); Bilirubin,Total 1.1 mg/dL (0.2-1.0); Blood Urea Nitrogen 15 mg/dL (7-18); Calcium 9.8 mg/dL (8.5-10.1); Carbon Dioxide 33 mmol/L (21.0-32.0); Chloride 101 mmol/L (98-107); Globulin 4.3 gm/dl (1.3-3.2); Glucose 121 mg/dL (74-106); Sodium 140 mmol/L (136-145); Total Protein,Serum 7.2 gm/dL (6.4-8.2)
[2019-03-06 11:30] LABS: Activated Partial Thrombo Time 27.5 seconds (23.6-34.0); INR 0.99 (0.9-1.1); Prothrombin Time 10.3 seconds (9.4-11.8)
--- NOTE | 2019-03-06 12:32 | History & Physical Report ---
*Chief complaint: shortness of breath *History of present illness: Ms. Vidal is an 83-year-old female with a history of bronchitis, arthritis, colitis, pneumonia, COPD, asthma, gout, neuropathy, hyperlipidemia, allergies, hypertension, GERD, chronic pain, and peripheral edema who presented to [facility] emergency room after experiencing progressive shortness of breath with increasing midsternal chest pain radiating to her back for the past 2 days. She stated that the pain was so intense that she was unable to bear it any longer. In the emergency room d-dimer was found to be greater than 4000. CTA of the chest showed bilateral pulmonary emboli. She was thus admitted to the hospital and placed on a heparin drip. Patient was recently hospitalized from 02/24 to with shortness of breath. CTA of the chest at this admission was negative for PE although IV did infiltrate and contrast was not fully administered. She has since had office visit and was being diuresed for the peripheral edema with Bumex. At time of this exam patient appears comfortable with nasal O2. She states the chest pain has lessened considerably. She is eating her lunch without any problems. [facility] History Medical History: Reports:: Asthma, Congestive Heart Failure, Chronic Obstructive Pulmonary Disease (COPD), Gastroesophageal Reflux Disease(GERD), Hyperlipidemia, Hypertension, Lung Disease, Renal Disease, Transient Ischemic Attacks (TIA), Ulcer Denies:: Cancer, Diabetes Mellitus Type 1, Diabetes Mellitus Type 2, Internal Pacemaker, MRSA, Seizures *Have you ever received a pneumonia vaccine?: Yes *Have you received a flu vaccine this season?: No Other Medical History: Reports: Arthritis Laterality Cases: Right: Arthroscopy Hip, Carpal Tunnel Release, Bilateral: Arthroscopy Shoulder, Cataract Other Surgeries: Yes: Cardiac Catheterization, Cholecystectomy, Hysterectomy- Partial. No: Pacemaker Amputation: No Fractures: Yes Comment: Polyps removed from vocal cords September 2006; total left shoulder replacement 07/16/2009; bilateral knee replacements; total right shoulder replacement July 2011; left shoulder surgery 07/17/2010; left elbow surgery 05/23/2015; L3-S1 laminectomy 08/25/2015; reverse [id number] letter of the left shoulder 07/16/2017; temporal artery biopsy 11/2018 - *Social History Smoking Status: Former smoker Tobacco Type: cigarettes # Packs/Day (cigarettes): 1 #Yrs smoked (if former smoker): 4 Alcohol Intake: never *Occupational Status:: other *Travel in the last 8 weeks: None Family Hx:: Asthma, Coronary Artery Disease, Hyperlipidemia, Hypertension, Kidney Disease, Stroke Review of Systems - Constitutional Reports fever(s) (Fever was 100.7 last p.m.), Denies body ache(s) - Eyes Denies change in vision - ENT Denies ear pain, Denies sore throat - *Cardiovascular Reports chest pain (Midsternal; increases on deep inspiration) - *Respiratory Reports cough (Infrequent), Reports shortness of breath, Reports pain with cough, Denies chest congestion - *Gastrointestinal Reports heartburn, Denies abdominal pain, Denies belching, Denies constipation, Denies bright, red blood in stools, Denies black, tarry stools, Denies nausea, Denies vomiting - *Genitourinary Reports urinary incontinence, Denies painful urination, Denies blood in urine - *Musculoskeletal Reports joint pain - *Neurologic Denies behavioral changes, Denies dizziness, Denies headache(s) Meds Home Medications Medication Instructions Recorded Confirmed Type allopurinol 300 mg tablet 300 mg PO DAILY 04/28/18 03/06/19 History aspirin 81 mg tablet,delayed 81 mg PO DAILY 04/28/18 03/06/19 History release coenzyme Q10 100 mg capsule 100 mg PO DAILY 04/28/18 03/06/19 History conjugated estrogens 0.3 mg tablet 0.3 mg PO DAILY 04/28/18 03/06/19 History fentanyl 25 mcg/hr transdermal 1 patch TRANSDERMA Q72H 04/28/18 03/06/19 History patch ferrous sulfate 325 mg (65 mg 325 mg PO DAILY tab 04/28/18 03/06/19 History iron) tablet irbesartan 150 mg tablet 150 mg PO DAILY 04/28/18 03/06/19 History levothyroxine 25 mcg tablet 25 mcg PO DAILY 04/28/18 03/06/19 History mecobalamin (vitamin B12) 1,000 1,000 mcg SUBLINGUAL DAILY 04/28/18 03/06/19 History mcg disintegrating tablet,sublingual mirabegron ER 50 mg 50 mg PO DAILY 04/28/18 03/06/19 History tablet,extended release 24 hr montelukast 10 mg tablet 10 mg PO HS 04/28/18 03/06/19 History potassium chloride ER 10 mEq 10 meq PO DAILY 04/28/18 03/06/19 History tablet,extended release verapamil ER 240 mg 24 hr 240 mg PO DAILY 04/28/18 03/06/19 History capsule,extended release raNITIdine HCl [Zantac 150mg] 150 mg PO DAILY 05/01/18 03/06/19 History Doxercalciferol 0.5 mg PO DAILY 08/01/18 03/06/19 History Atorvastatin Calcium [Atorvastatin 10 mg PO HS 02/25/19 03/06/19 History 20mg Tab] Bumetanide 1 mg PO BID #0 02/25/19 03/06/19 Rx Dexlansoprazole [Dexilant] 30 mg PO DAILY 02/25/19 03/06/19 History Donepezil HCl [Aricept 10mg 10 mg PO HS 02/25/19 03/06/19 History tablet] Gabapentin 600 mg PO BID 02/25/19 03/06/19 History Polyethylene Glycol 3350 [Miralax 17 gm PO DAILY 02/25/19 03/06/19 History Powder] Allergies Allergy/AdvReac Type Severity Reaction Status Date / Time nut - unspecified Allergy Intermediate Anaphylaxis Verified 02/25/19 09:11 bacitracin Allergy Mild I-RASH Verified 08/01/18 12:35 [From Neosporin ([id number])] chlorhexidine Allergy Mild I-RASH Verified 08/01/18 12:35 [From Hibiclens] clarithromycin [From Biaxin] Allergy Mild I-RASH Verified 08/01/18 12:35 ipratropium [From Atrovent] Allergy Mild Unknown Verified 02/25/19 09:11 allergy reaction neomycin Allergy Mild I-RASH Verified 08/01/18 12:35 [From Neosporin ([id number])] nitrofurantoin Allergy Mild ANAPHYLAXIS Verified 08/01/18 12:35 [From Macrodantin] paricalcitol [From Zemplar] Allergy Mild I-RASH Verified 08/01/18 12:35 Penicillins Allergy Mild ANAPHYLAXIS Verified 08/01/18 12:35 polymyxin B Allergy Mild I-RASH Verified 08/01/18 12:35 [From Neosporin ([id number])] povidone-iodine Allergy Mild I-RASH Verified 08/01/18 12:35 [From Betadine] soap [From Betadine] Allergy Mild I-RASH Verified 08/01/18 12:35 Sulfa (Sulfonamide Allergy Mild HEADACHES,R Verified 08/01/18 12:35 Antibiotics) DENZEL latex [LATEX] Allergy Unknown I-RASH Verified 08/01/18 12:35 trazodone Allergy Weakness Verified 08/01/18 12:36 Exam Vital signs and Labs for Last 24 Hours: Temp Pulse Resp BP Pulse Ox 99.9 F H 66 18 141/58 H 96 03/06/19 11:45 03/06/19 11:45 03/06/19 11:45 03/06/19 11:45 03/06/19 11:45 Laboratory Results - last 24 hr 03/06/19 08:27: WBC 13.0 H, RBC 4.34, Hgb 13.8, Hct 42.9, MCV 98.8, MCH 31.8 H, MCHC 32.2, RDW 14.4, Plt Count 177, MPV 8.2, Neut % (Auto) 81.1 H, Lymph % (Auto) 13.2, [place] % (Auto) 5.3, Eos % (Auto) 0.2, Baso % (Auto) 0.2, Neut # (Auto) 10.5 H, Lymph # (Auto) 1.7, [place] # (Auto) 0.7, Eos # (Auto) 0.0, Baso # (Auto) 0.0 03/06/19 08:27: D-Dimer 4300 H* 03/06/19 08:27: Sodium 140, Potassium 3.8, Chloride 101, Carbon Dioxide 33 H, Anion Gap 9.8, BUN 15, Creatinine 1.05 H, Estimated Creat Clear 60, Estimated GFR 50 L, Est GFR ( Amer) 60, Glucose 121 H, Calcium 9.8, Total Bilirubin 1.1 H, AST 13 L, ALT 21, Alkaline Phosphatase 86, Troponin I < 0.02, Total Protein 7.2, Albumin 2.9 L, Globulin 4.3 H, Albumin/Globulin Ratio 0.7 L, Amylase 22 L 03/06/19 08:27: Lipase 73 03/06/19 09:13: Lactate 1.6 03/06/19 09:13: PT 10.3, INR 0.99, APTT 27.5 I & O for Last 24 hours: Intake & Output 03/04/19 03/05/19 03/06/19 03/07/19 11:59 11:59 11:59 11:59 Weight 213 lb 6 oz - Constitutional no acute distress Comments: Sitting up in the bed eating her lunch - *Routine HEENT Exam Head: Present: normocephalic, atraumatic Eye: Present: PERRL ENT: Present: mucous membranes moist, oropharynx clear - *Routine Neck Exam Present: supple. Absent: carotid bruit, lymphadenopathy, thyromegaly - *Routine Respiratory Exam Present: diminished air movement (Posteriorly) - *Routine Cardiovascular Exam Present: RRR - *Routine Abdominal Exam Present: soft, normoactive bowel sounds. Absent: tenderness - *Routine Extremities Exam Present: edema (Trace bilaterally), pulses intact. Absent: calf tenderness, palpable cord, tenderness - *Routine Skin Exam Absent: cyanosis, erythema - *Routine Neurological Exam Present: alert, oriented X3 Assessment and Plan (1) Dyspnea Current visit: Yes Status: Acute Category: Medical Code(s): R06.00 - Dyspnea, unspecified (2) Pulmonary embolism, bilateral Current visit: Yes Status: Acute Category: Medical Code(s): I26.99 - Other pulmonary embolism without acute cor pulmonale (3) Chest pain Current visit: No Status: Acute Qualifiers: Chest pain type: unspecified Qualified Code(s): R07.9 - Chest pain, unspecified Category: Medical Code(s): R07.9 - Chest pain, unspecified (4) Chronic pain syndrome Current visit: No Status: Acute Category: Medical Code(s): G89.4 - Chronic pain syndrome (5) Essential hypertension Current visit: No Status: Acute Category: Medical Code(s): I10 - Essential (primary) hypertension (6) GERD (gastroesophageal reflux disease) Current visit: No Status: Acute Qualifiers: Esophagitis presence: with esophagitis Qualified Code(s): K21.0 - Gastro- esophageal reflux disease with esophagitis Category: Medical Code(s): K21.9 - Gastro-esophageal reflux disease without esophagitis (7) Hyperlipemia Current visit: No Status: Acute Category: Medical Code(s): E78.5 - Hyperlipidemia, unspecified (8) Hypothyroid Current visit: No Status: Acute Category: Medical Code(s): E03.9 - Hypothyroidism, unspecified (9) Peripheral edema Current visit: No Status: Acute Category: Medical Code(s): R60.9 - Edema, unspecified - Assessment and plan all Dx Assessment and Plan for all problems:: Venous Doppler studies of bilateral legs and echocardiogram results are pending. We will continue with heparin drip. Patient is observed to be eating and drinking well. Will decrease IV fluids to 50/h. Some of home meds have been ordered; Cardiology has also been consulted
--- NOTE | 2019-03-06 13:29 | Pharmacy Consult Notes ---
[facility] Pharmacy VTE Monitoring - Patient Demographics Admission date: 03/06/19 Report Date: 03/06/19 Time: 13:24 Allergies/Adverse Reactions: Patient Allergies nut - unspecified Allergy (Intermediate, Verified 02/25/19 09:11) Anaphylaxis bacitracin [From Neosporin ([id number])] Allergy (Mild, Verified 08/01/18 12:35) I-RASH chlorhexidine [From Hibiclens] Allergy (Mild, Verified 08/01/18 12:35) I-RASH clarithromycin [From Biaxin] Allergy (Mild, Verified 08/01/18 12:35) I-RASH ipratropium [From Atrovent] Allergy (Mild, Verified 02/25/19 09:11) Unknown allergy reaction neomycin [From Neosporin ([id number])] Allergy (Mild, Verified 08/01/18 12:35) I-RASH nitrofurantoin [From Macrodantin] Allergy (Mild, Verified 08/01/18 12:35) ANAPHYLAXIS paricalcitol [From Zemplar] Allergy (Mild, Verified 08/01/18 12:35) I-RASH Penicillins Allergy (Mild, Verified 08/01/18 12:35) ANAPHYLAXIS polymyxin B [From Neosporin ([id number])] Allergy (Mild, Verified 08/01/18 12:35) I-RASH povidone-iodine [From Betadine] Allergy (Mild, Verified 08/01/18 12:35) I-RASH soap [From Betadine] Allergy (Mild, Verified 08/01/18 12:35) I-RASH Sulfa (Sulfonamide Antibiotics) Allergy (Mild, Verified 08/01/18 12:35) HEADACHES,RASH latex [LATEX] Allergy (Unknown, Verified 08/01/18 12:35) I-RASH trazodone Allergy (Verified 08/01/18 12:36) Weakness Height: 1.6 m Weight: 96.785 kg Patient Problems: Current Active Problems Dyspnea (Acute) Pulmonary embolism, bilateral (Acute) - VTE Risk Labs: VTE Related Lab Results Hgb 13.8 g/dL (12.2-16.2) 03/06/19 08:27 Hct 42.9 % (37.0-47.0) 03/06/19 08:27 Plt Count 177 K/mm3 (142-424) 03/06/19 08:27 PT 10.3 seconds (9.4-11.8) 03/06/19 09:13 INR 0.99 (0.9-1.1) 03/06/19 09:13 APTT 27.5 seconds (23.6-34.0) 03/06/19 09:13 BUN 15 mg/dL (7-18) 03/06/19 08:27 Creatinine 1.05 mg/dL (0.55-1.02) H 03/06/19 08:27 Estimated Creat Clear 60 mL/min (50-200) 03/06/19 08:27 Was VTE Risk Assessment Performed: Yes VTE Score: 8 VTE Risk Level: Moderate Risk - Prophylaxis VTE Prophylaxis Ordered?: Yes Types of VTE Prophylaxis: Pharmacological Pharmacologic Type: Heparin
--- NOTE | 2019-03-06 13:32 | Pharmacy Consult Notes ---
[facility] Pharmacy Heparin Dosing - Demographic Data Admission date:: 03/06/19 Date: 03/06/19 Time: 13:30 Allergies/Adverse Reactions: Allergies Allergy/AdvReac Type Severity Reaction Status Date / Time nut - unspecified Allergy Intermediate Anaphylaxis Verified 02/25/19 09:11 bacitracin Allergy Mild I-RASH Verified 08/01/18 12:35 [From Neosporin ([id number])] chlorhexidine Allergy Mild I-RASH Verified 08/01/18 12:35 [From Hibiclens] clarithromycin [From Biaxin] Allergy Mild I-RASH Verified 08/01/18 12:35 ipratropium [From Atrovent] Allergy Mild Unknown Verified 02/25/19 09:11 allergy reaction neomycin Allergy Mild I-RASH Verified 08/01/18 12:35 [From Neosporin ([id number])] nitrofurantoin Allergy Mild ANAPHYLAXIS Verified 08/01/18 12:35 [From Macrodantin] paricalcitol [From Zemplar] Allergy Mild I-RASH Verified 08/01/18 12:35 Penicillins Allergy Mild ANAPHYLAXIS Verified 08/01/18 12:35 polymyxin B Allergy Mild I-RASH Verified 08/01/18 12:35 [From Neosporin ([id number])] povidone-iodine Allergy Mild I-RASH Verified 08/01/18 12:35 [From Betadine] soap [From Betadine] Allergy Mild I-RASH Verified 08/01/18 12:35 Sulfa (Sulfonamide Allergy Mild HEADACHES,R Verified 08/01/18 12:35 Antibiotics) DNEZEL latex [LATEX] Allergy Unknown I-RASH Verified 08/01/18 12:35 trazodone Allergy Weakness Verified 08/01/18 12:36 Height: 1.6 m Weight: 96.78 kg - Indication Medication therapy:: Heparin Current Indications:: PE Patient Problems: Current Active Problems Dyspnea (Acute) Pulmonary embolism, bilateral (Acute) Anemia (Acute) CVA?: No Bleeding problem?: No Kidney disease?: No GA?: No Desired PTT range:: 60-80 seconds - Labs Anticoagulation Lab Results:: 03/06/19 08:27 Hgb 13.8 Hct 42.9 Plt Count 177 - Monitoring Dose Monitor 1 Date: 03/06/19 Time: 09:13 PTT Result:: 27.5 Infusion Rate:: 1300 UNITS/HR = 26 ML Comment:: BASELINE 5000 UNIT BOLUS GIVEN [id number] Dose Monitor 2 Date: 03/06/19 Time: 17:00 PTT Result:: 65.7 Infusion Rate:: 26 ML/HR Dose Monitor 3 Date: 03/06/19 Time: 23:00 PTT Result:: 68.1 Infusion Rate:: 26 ML/HR Dose Monitor 4 Date: 03/07/19 Time: 06:00 PTT Result:: 70.7 Infusion Rate:: 26 ML/HR - Core Measures Is INR > or = 2 at discharge?: No Most Recent Labs:: Laboratory Results - last 24 hr 03/06/19 08:27: WBC 13.0 H, RBC 4.34, Hgb 13.8, Hct 42.9, MCV 98.8, MCH 31.8 H, MCHC 32.2, RDW 14.4, Plt Count 177, MPV 8.2, Neut % (Auto) 81.1 H, Lymph % (Auto) 13.2, [place] % (Auto) 5.3, Eos % (Auto) 0.2, Baso % (Auto) 0.2, Neut # (Auto) 10.5 H, Lymph # (Auto) 1.7, [place] # (Auto) 0.7, Eos # (Auto) 0.0, Baso # (Auto) 0.0 03/06/19 08:27: D-Dimer 4300 H* 03/06/19 08:27: Sodium 140, Potassium 3.8, Chloride 101, Carbon Dioxide 33 H, Anion Gap 9.8, BUN 15, Creatinine 1.05 H, Estimated Creat Clear 60, Estimated GFR 50 L, Est GFR ( Amer) 60, Glucose 121 H, Calcium 9.8, Total Bilirubin 1.1 H, AST 13 L, ALT 21, Alkaline Phosphatase 86, Troponin I < 0.02, Total Protein 7.2, Albumin 2.9 L, Globulin 4.3 H, Albumin/Globulin Ratio 0.7 L, Amylase 22 L 03/06/19 08:27: Lipase 73 03/06/19 09:13: Lactate 1.6 03/06/19 09:13: PT 10.3, INR 0.99, APTT 27.5 If INR was < than 2.0 why was therapy stopped?: SWITCHED TO XARELTO Were Heparin and Warfarin started on the same day?: No If not, why?: SWITCHED TO XARELTO
--- NOTE | 2019-03-06 13:33 | Consult Report ---
History of Present Illness Consult date: 03/06/19 Requesting physician: Viktoria Richards Consult reason: shortness of breath Chief complaint: SOA Additional Medical History:: 1. 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 History of TIAs, remote, with transient Plavix use in the past 3. Chronic back pain with fentanyl patch use secondary to degenerative disc disease status post surgery 4. History of hypertension 5. Hyperlipidemia 6. History of GERD and ulcer A. EGD, 07/2018, Impression: 1. Cricopharyngeal spasm status post dilation to 20 mm 2. Nonerosive GERD with mild esophageal dysmotility 3. Bile reflux with linear reactive gastropathy 4. Gastric polyp lesser curvature (7 mm) 7. History of gout History of present illness: 83-year-old white female admitted for pulmonary emboli bilaterally. Patient relates onset of shortness of breath approximately 2 weeks ago with subsequent hospitalization at which time pulmonary embolus was reportedly ruled out per patient. She was unable to get adequate CT of the chest to rule out PE at that time due to complications with IV access. Evidence of CHF was noted and symptoms seemed to improve with increase in diuretic therapy. Patient was discharged home from that hospitalization but continued to have some shortness of breath that worsened last evening. Patient's daughter decided to bring her back to the hospital for further evaluation and treatment. CT scan of the chest was performed today revealing bilateral pulmonary emboli. Venous Doppler ultrasound of the lower extremities is pending at this time. Patient has been started on IV heparin. She does have some pleuritic type chest discomfort with breathing. Patient relates evaluation of leg pain approximately 6 to 8 weeks ago with STEPHANIE that was reportedly okay and recommendation for lower extremity compression stockings which she wore briefly before discarding. Patient had previously also been on conjugated estrogen which was stopped after her most recent hospitalization. Her activity is limited but she is not sedentary most of the time. [facility] History Medical History: Reports:: Asthma, Congestive Heart Failure, Chronic Obstructive Pulmonary Disease (COPD), Gastroesophageal Reflux Disease(GERD), Hyperlipidemia, Hypertension, Lung Disease, Renal Disease, Transient Ischemic Attacks (TIA), Ulcer Denies:: Cancer, Diabetes Mellitus Type 1, Diabetes Mellitus Type 2, Internal Pacemaker, MRSA, Seizures *Have you ever received a pneumonia vaccine?: Yes *Have you received a flu vaccine this season?: Yes Other Medical History: Reports: Arthritis Laterality Cases: Right: Arthroscopy Hip, Carpal Tunnel Release, Bilateral: Arthroscopy Shoulder, Cataract, Total Knee Replacement Other Surgeries: Yes: Cardiac Catheterization, Cholecystectomy, Hysterectomy- Partial. No: Pacemaker Amputation: No Fractures: Yes - *Social History Smoking Status: Former smoker Tobacco Type: cigarettes # Packs/Day (cigarettes): 1 #Yrs smoked (if former smoker): 4 Alcohol Intake: never *Occupational Status:: other Housing: house Household Members: family *Travel in the last 8 weeks: None Family Hx:: Asthma, Coronary Artery Disease, Hyperlipidemia, Hypertension, Kidney Disease, Stroke Meds Home Medications Medication Instructions Recorded Confirmed Type allopurinol 300 mg tablet 300 mg PO DAILY 04/28/18 03/06/19 History aspirin 81 mg tablet,delayed 81 mg PO DAILY 04/28/18 03/06/19 History release coenzyme Q10 100 mg capsule 100 mg PO DAILY 04/28/18 03/06/19 History conjugated estrogens 0.3 mg tablet 0.3 mg PO DAILY 04/28/18 03/06/19 History fentanyl 25 mcg/hr transdermal 1 patch TRANSDERMA Q72H 04/28/18 03/06/19 History patch ferrous sulfate 325 mg (65 mg 325 mg PO DAILY tab 04/28/18 03/06/19 History iron) tablet irbesartan 150 mg tablet 150 mg PO DAILY 04/28/18 03/06/19 History levothyroxine 25 mcg tablet 25 mcg PO DAILY 04/28/18 03/06/19 History mecobalamin (vitamin B12) 1,000 1,000 mcg SUBLINGUAL DAILY 04/28/18 03/06/19 History mcg disintegrating tablet,sublingual mirabegron ER 50 mg 50 mg PO DAILY 04/28/18 03/06/19 History tablet,extended release 24 hr montelukast 10 mg tablet 10 mg PO HS 04/28/18 03/06/19 History potassium chloride ER 10 mEq 10 meq PO DAILY 04/28/18 03/06/19 History tablet,extended release verapamil ER 240 mg 24 hr 240 mg PO DAILY 04/28/18 03/06/19 History capsule,extended release raNITIdine HCl [Zantac 150mg] 150 mg PO DAILY 05/01/18 03/06/19 History Doxercalciferol 0.5 mg PO DAILY 08/01/18 03/06/19 History Atorvastatin Calcium [Atorvastatin 10 mg PO HS 02/25/19 03/06/19 History 20mg Tab] Bumetanide 1 mg PO BID #0 02/25/19 03/06/19 Rx Dexlansoprazole [Dexilant] 30 mg PO DAILY 02/25/19 03/06/19 History Donepezil HCl [Aricept 10mg 10 mg PO HS 02/25/19 03/06/19 History tablet] Gabapentin 600 mg PO BID 02/25/19 03/06/19 History Polyethylene Glycol 3350 [Miralax 17 gm PO DAILY 02/25/19 03/06/19 History Powder] Allergies Allergy/AdvReac Type Severity Reaction Status Date / Time nut - unspecified Allergy Intermediate Anaphylaxis Verified 02/25/19 09:11 bacitracin Allergy Mild I-RASH Verified 08/01/18 12:35 [From Neosporin ([id number])] chlorhexidine Allergy Mild I-RASH Verified 08/01/18 12:35 [From Hibiclens] clarithromycin [From Biaxin] Allergy Mild I-RASH Verified 08/01/18 12:35 ipratropium [From Atrovent] Allergy Mild Unknown Verified 02/25/19 09:11 allergy reaction neomycin Allergy Mild I-RASH Verified 08/01/18 12:35 [From Neosporin ([id number])] nitrofurantoin Allergy Mild ANAPHYLAXIS Verified 08/01/18 12:35 [From Macrodantin] paricalcitol [From Zemplar] Allergy Mild I-RASH Verified 08/01/18 12:35 Penicillins Allergy Mild ANAPHYLAXIS Verified 08/01/18 12:35 polymyxin B Allergy Mild I-RASH Verified 08/01/18 12:35 [From Neosporin ([id number])] povidone-iodine Allergy Mild I-RASH Verified 08/01/18 12:35 [From Betadine] soap [From Betadine] Allergy Mild I-RASH Verified 08/01/18 12:35 Sulfa (Sulfonamide Allergy Mild HEADACHES,R Verified 08/01/18 12:35 Antibiotics) DENZEL latex [LATEX] Allergy Unknown I-RASH Verified 08/01/18 12:35 trazodone Allergy Weakness Verified 08/01/18 12:36 Review of Systems - *Cardiovascular Reports chest pain, Reports shortness of breath, Reports shortness of breath with activity - *Respiratory Reports cough, Reports shortness of breath, Reports shortness of breath with activity - *Gastrointestinal Denies abdominal pain, Denies loose stools, Denies nausea, Denies vomiting - *Musculoskeletal Reports joint pain, Reports back pain - *Neurologic Denies unsteadiness, Denies dizziness, Denies fainting Exam Vital signs and Labs for Last 24 Hours: Temp Pulse Resp BP Pulse Ox 99.9 F H 66 18 141/58 H 96 03/06/19 11:45 03/06/19 11:45 03/06/19 11:45 03/06/19 11:45 03/06/19 11:45 Laboratory Results - last 24 hr 03/06/19 08:27: WBC 13.0 H, RBC 4.34, Hgb 13.8, Hct 42.9, MCV 98.8, MCH 31.8 H, MCHC 32.2, RDW 14.4, Plt Count 177, MPV 8.2, Neut % (Auto) 81.1 H, Lymph % (Auto) 13.2, [place] % (Auto) 5.3, Eos % (Auto) 0.2, Baso % (Auto) 0.2, Neut # (Auto) 10.5 H, Lymph # (Auto) 1.7, [place] # (Auto) 0.7, Eos # (Auto) 0.0, Baso # (Auto) 0.0 03/06/19 08:27: D-Dimer 4300 H* 03/06/19 08:27: Sodium 140, Potassium 3.8, Chloride 101, Carbon Dioxide 33 H, Anion Gap 9.8, BUN 15, Creatinine 1.05 H, Estimated Creat Clear 60, Estimated GFR 50 L, Est GFR ( Amer) 60, Glucose 121 H, Calcium 9.8, Total Bilirubin 1.1 H, AST 13 L, ALT 21, Alkaline Phosphatase 86, Troponin I < 0.02, Total Protein 7.2, Albumin 2.9 L, Globulin 4.3 H, Albumin/Globulin Ratio 0.7 L, Amylase 22 L 03/06/19 08:27: Lipase 73 03/06/19 09:13: Lactate 1.6 03/06/19 09:13: PT 10.3, INR 0.99, APTT 27.5 I & O for Last 24 hours: Intake & Output 03/04/19 03/05/19 03/06/19 03/07/19 11:59 11:59 11:59 11:59 Weight 213 lb 6 oz - *Routine HEENT Exam Head: Present: normocephalic Eye: Present: EOMI, PERRL ENT: Present: mucous membranes moist - *Routine Neck Exam Present: supple. Absent: JVD, carotid bruit - *Routine Respiratory Exam Present: decreased breath sounds, CTA bilaterally. Absent: accessory muscle use, rales, rhonchi, wheezes - *Routine Cardiovascular Exam Present: RRR. Absent: murmur, gallop, rubs - *Routine Abdominal Exam Present: soft. Absent: tenderness, distended, guarding - *Routine Extremities Exam Present: edema. Absent: calf tenderness - *Routine Neurological Exam Present: alert, oriented X3, moving all extremities Assessment and Plan (1) Pulmonary embolism, bilateral Current visit: Yes Status: Acute Category: Medical Code(s): I26.99 - Other pulmonary embolism without acute cor pulmonale (2) Dyspnea Current visit: Yes Status: Acute Category: Medical Code(s): R06.00 - Dyspnea, unspecified (3) Essential hypertension Current visit: No Status: Acute Category: Medical Code(s): I10 - Essential (primary) hypertension - Assessment and plan all Dx Assessment and Plan for all problems:: 1. Bilateral pulmonary emboli. Current patient currently on heparin drip which could be transitioned to Xarelto 15 mg twice daily for 3 weeks and then Xarelto 20 mg daily thereafter based on creatinine clearance of 60. 2. Possible malignant course of RCA on chest CTA 02/25/2019. After speaking with Dr. Cook of Radiology, he does not feel the RCA has a malignant course based on today's CTA. 3. Await echocardiogram for evaluation LVEF due to history of CHF.
--- NOTE | 2019-03-06 16:53 | Electrocardiograph Report ---
APPROVED REPORT Exam: Resting ECG HR:79 bpm ECG Measurements Heart Rate 79 AXES RI 164 P 75 QRSd 104 QRS 20 QT 436 T57 QTc 499 <Conclusion> Sinus rhythm with occasional premature ventricular complexes Poor R Wave Progression Abnormal ECG Electronically signed by : Flip Jensen, 03/06/2019 16:52:37
[2019-03-07 06:58] LABS: Anion Gap 9.7 mEq/L (5-15)
[2019-03-07 07:14] LABS: Basophils % 0.1 % (0.1-2.0); Eosinophils % 0.4 % (0.1-12.0); Hematocrit 33.8 % (37.0-47.0); Lymphocytes # 1.2 K/mm3 (0.7-4.5); Lymphocytes % 14.6 % (10-50); Mean Corpuscular HGB Conc 31.4 g/dL (31.8-35.4); Mean Corpuscular Volume 98.6 fl (81-99); Mean Platelet Volume 8.1 fl (7.4-10.4); Monocytes # 0.5 K/mm3 (0.1-1.0); Monocytes % 5.7 % (1.7-9.3); Neutrophils # 6.7 K/mm3 (1.8-7.8); Neutrophils % 79.3 % (37.0-80.0); Platelet Count 138 K/mm3 (142-424); Red Blood Count 3.43 M/mm3 (4.20-5.40); Red Cell Distribution Width 14.3 % (11.5-17.5); White Blood Count 8.5 K/mm3 (4.8-10.8)
[2019-03-07 07:39] LABS: Calcium 8.6 mg/dL (8.5-10.1)
--- NOTE | 2019-03-07 08:09 | Progress Note ---
Subjective Date: 03/07/19 Time: 08:08 Principal diagnosis: PE Interval history: 83-year-old white female just returned from the bathroom in no acute distress. Some shortness of breath but overall states she is feeling better. Oxygen currently off for check of room air O2 sat within the hour to decide if home oxygen needed. Official report of venous Doppler study of the legs pending. Exam Vital signs and Labs for Last 24 Hours: Temp Pulse Resp BP Pulse Ox 98.0 F 86 20 137/64 90 L 03/07/19 04:00 03/07/19 04:00 03/07/19 04:00 03/07/19 04:00 03/07/19 04:00 Laboratory Results - last 24 hr 03/06/19 08:27: WBC 13.0 H, RBC 4.34, Hgb 13.8, Hct 42.9, MCV 98.8, MCH 31.8 H, MCHC 32.2, RDW 14.4, Plt Count 177, MPV 8.2, Neut % (Auto) 81.1 H, Lymph % (Auto) 13.2, [place] % (Auto) 5.3, Eos % (Auto) 0.2, Baso % (Auto) 0.2, Neut # (Auto) 10.5 H, Lymph # (Auto) 1.7, [place] # (Auto) 0.7, Eos # (Auto) 0.0, Baso # (Auto) 0.0 03/06/19 08:27: D-Dimer 4300 H* 03/06/19 08:27: Sodium 140, Potassium 3.8, Chloride 101, Carbon Dioxide 33 H, Anion Gap 9.8, BUN 15, Creatinine 1.05 H, Estimated Creat Clear 60, Estimated GFR 50 L, Est GFR ( Amer) 60, Glucose 121 H, Calcium 9.8, Total Bilirubin 1.1 H, AST 13 L, ALT 21, Alkaline Phosphatase 86, Troponin I < 0.02, Total Protein 7.2, Albumin 2.9 L, Globulin 4.3 H, Albumin/Globulin Ratio 0.7 L, Amylase 22 L 03/06/19 08:27: Lipase 73 03/06/19 09:13: Lactate 1.6 03/06/19 09:13: PT 10.3, INR 0.99, APTT 27.5 03/06/19 17:10: APTT 65.7 H* D 03/06/19 23:20: APTT 68.1 H* 03/07/19 06:14: APTT 70.7 H* 03/07/19 06:14: WBC 8.5 D, RBC 3.43 L, Hct 33.8 L, MCV 98.6, MCH 30.9, MCHC 31.4 L, RDW 14.3, Plt Count 138 L, MPV 8.1, Neut % (Auto) 79.3, Lymph % (Auto) 14.6, [place] % (Auto) 5.7, Eos % (Auto) 0.4, Baso % (Auto) 0.1, Neut # (Auto) 6.7, Lymph # (Auto) 1.2, [place] # (Auto) 0.5, Eos # (Auto) 0.0, Baso # (Auto) 0.0 03/07/19 06:14: Sodium 142, Potassium 3.7, Chloride 105, Carbon Dioxide 31, Anion Gap 9.7, BUN 17, Creatinine 1.02, Estimated Creat Clear 62, Estimated GFR 52 L, Est GFR ( Amer) 62, Glucose 107 H, Calcium 8.6 D I & O for Last 24 hours: Intake & Output 03/04/19 03/05/19 03/06/19 03/07/19 11:59 11:59 11:59 11:59 Intake Total 1692 / 1692 Balance 1692 / 1692 Weight 213 lb 6 oz 213 lb 5.814 oz - *Routine HEENT Exam Head: Present: normocephalic Eye: Present: EOMI, PERRL ENT: Present: mucous membranes moist - *Routine Respiratory Exam Present: CTA bilaterally. Absent: accessory muscle use, rales, rhonchi, wheezes - *Routine Cardiovascular Exam Present: RRR. Absent: murmur, gallop, rubs - *Routine Extremities Exam Absent: edema, calf tenderness - *Routine Neurological Exam Present: alert, oriented X3, moving all extremities Progress Note: A&P (1) Dyspnea Status: Acute Current Visit: Yes (2) Pulmonary embolism, bilateral Status: Acute Current Visit: Yes (3) Chest pain Status: Acute Current Visit: No (4) Chronic pain syndrome Status: Acute Current Visit: No (5) Essential hypertension Status: Acute Current Visit: No (6) GERD (gastroesophageal reflux disease) Status: Acute Current Visit: No (7) Hyperlipemia Status: Acute Current Visit: No (8) Hypothyroid Status: Acute Current Visit: No (9) Peripheral edema Status: Acute Current Visit: No Assessment and Plan for All Diagnoses:: 1. Echocardiogram results pending 2. Patient clinically stable on IV heparin. Again, this could be transitioned to Xarelto 15 mg twice daily for 3 weeks upon discharge and then 20 mg daily thereafter.
[2019-03-07 08:36] LABS: Hemoglobin 10.7 g/dL (12.2-16.2)
--- NOTE | 2019-03-07 08:53 | Progress Note ---
Internal Medicine - PN: Subj *Date: 03/07/19 *Time: 08:49 Interval history: Patient would like her MiraLAX and Xyzal reordered. She describes shortness of breath on exertion. She can take a deep breath without pain. She has some right lower rib cage pain and tenderness. She is eating without difficulty. She continues to be incontinent of urine. Her bowels moved a little bit yesterday. She has ambulated in the room. Venous Doppler studies are pending. Discussed with radiology and they will follow-up. Exam Vital signs and Labs for Last 24 Hours: Temp Pulse Resp BP Pulse Ox 98.0 F 86 20 137/64 90 L 03/07/19 04:00 03/07/19 04:00 03/07/19 04:00 03/07/19 04:00 03/07/19 04:00 Laboratory Results - last 24 hr 03/06/19 08:27: D-Dimer 4300 H* 03/06/19 08:27: Sodium 140, Potassium 3.8, Chloride 101, Carbon Dioxide 33 H, Anion Gap 9.8, BUN 15, Creatinine 1.05 H, Estimated Creat Clear 60, Estimated GFR 50 L, Est GFR ( Amer) 60, Glucose 121 H, Calcium 9.8, Total Bilirubin 1.1 H, AST 13 L, ALT 21, Alkaline Phosphatase 86, Troponin I < 0.02, Total Protein 7.2, Albumin 2.9 L, Globulin 4.3 H, Albumin/Globulin Ratio 0.7 L, Amylase 22 L 03/06/19 08:27: Lipase 73 03/06/19 09:13: Lactate 1.6 03/06/19 09:13: PT 10.3, INR 0.99, APTT 27.5 03/06/19 17:10: APTT 65.7 H* D 03/06/19 23:20: APTT 68.1 H* 03/07/19 06:14: APTT 70.7 H* 03/07/19 06:14: WBC 8.5 D, RBC 3.43 L, Hgb 10.7 L D, Hct 33.8 L, MCV 98.6, MCH 30.9, MCHC 31.4 L, RDW 14.3, Plt Count 138 L, MPV 8.1, Neut % (Auto) 79.3, Lymph % (Auto) 14.6, [place] % (Auto) 5.7, Eos % (Auto) 0.4, Baso % (Auto) 0.1, Neut # (Auto) 6.7, Lymph # (Auto) 1.2, [place] # (Auto) 0.5, Eos # (Auto) 0.0, Baso # (Auto) 0.0 03/07/19 06:14: Sodium 142, Potassium 3.7, Chloride 105, Carbon Dioxide 31, Anion Gap 9.7, BUN 17, Creatinine 1.02, Estimated Creat Clear 62, Estimated GFR 52 L, Est GFR ( Amer) 62, Glucose 107 H, Calcium 8.6 D I & O for Last 24 hours: Intake & Output 03/04/19 03/05/19 03/06/19 03/07/19 11:59 11:59 11:59 11:59 Intake Total 1931 Output Total Balance 1930 Weight 213 lb 6 oz 213 lb 5.814 oz - Constitutional no acute distress Comments: Appears comfortable in the bed after resting after being up to the bathroom. - *Routine Respiratory Exam Comments: Better air movement today bilaterally. Few crackles heard on the right. - *Routine Cardiovascular Exam Present: RRR - *Routine Abdominal Exam Present: soft, normoactive bowel sounds, tenderness (Right upper quadrant) - *Routine Extremities Exam Absent: edema, calf tenderness, palpable cord - *Routine Neurological Exam Present: alert, oriented X3 Assessment and Plan (1) Dyspnea Current visit: Yes Status: Acute Category: Medical Code(s): R06.00 - Dyspnea, unspecified (2) Pulmonary embolism, bilateral Current visit: Yes Status: Acute Category: Medical Code(s): I26.99 - Other pulmonary embolism without acute cor pulmonale (3) Chest pain Current visit: No Status: Acute Qualifiers: Chest pain type: unspecified Qualified Code(s): R07.9 - Chest pain, unspecified Category: Medical Code(s): R07.9 - Chest pain, unspecified (4) Chronic pain syndrome Current visit: No Status: Acute Category: Medical Code(s): G89.4 - Chronic pain syndrome (5) Essential hypertension Current visit: No Status: Acute Category: Medical Code(s): I10 - Essential (primary) hypertension (6) GERD (gastroesophageal reflux disease) Current visit: No Status: Acute Qualifiers: Esophagitis presence: with esophagitis Qualified Code(s): K21.0 - Gastro- esophageal reflux disease with esophagitis Category: Medical Code(s): K21.9 - Gastro-esophageal reflux disease without esophagitis (7) Hyperlipemia Current visit: No Status: Acute Category: Medical Code(s): E78.5 - Hyperlipidemia, unspecified (8) Hypothyroid Current visit: No Status: Acute Category: Medical Code(s): E03.9 - Hypothyroidism, unspecified (9) Peripheral edema Current visit: No Status: Acute Category: Medical Code(s): R60.9 - Edema, unspecified (10) Anemia Current visit: Yes Status: Acute Category: Medical Code(s): D64.9 - Anemia, unspecified - Assessment and plan all Dx Assessment and Plan for all problems:: We will continue with heparin drip and consider converting to the Xarelto. O2 sats are good on room air and will continue to monitor
--- NOTE | 2019-03-07 09:23 | Cardiology Report ---
APPROVED REPORT Bilateral Lower Extremity Venous Study for Braille Translator: CZ Indications Pulmonary Embolism Shortness of breath Boo. PE's, SOA Vein Imaging CFV (R): compressive, spontaneous, phasic, augmentation FEM (R): compressive, spontaneous, phasic, augmentation POP (R): compressive, spontaneous, phasic, augmentation PTV (R): Compressible GSV (R): Compressible Peroneals (R):Compressible GAS (R): Compressible CFV (L): compressive, spontaneous, phasic, augmentation FEM (L): compressive, spontaneous, phasic, augmentation POP (L): compressive, spontaneous, phasic, augmentation PTV (L): Compressible GSV (L): Compressible Peroneals (L):Compressible GAS (L): Compressible Findings No evidence of DVT or superficial thrombophlebitis in the veins scanned of the right lower extremity. No evidence of DVT or superficial thrombophlebitis in the veins scanned of the left lower extremity. Conclusion No evidence of DVT or superficial thrombophlebitis in the veins scanned of the right lower extremity. No evidence of DVT or superficial thrombophlebitis in the veins scanned of the left lower extremity. Electronically signed by : Remigio Cook MD 03/07/2019 09:23:05
[2019-03-07 09:43] LABS: Microscopic, Urine URINE MICROSCOPIC (MICROSCOPIC)
[2019-03-07 09:47] LABS: Appearance,Urine CLEAR (Clear); Bilirubin,Urine Negative (Negative); Blood, Urine 2+ (Negative); Color,Urine YELLOW (Yellow); Glucose,Urine (UA) Negative (Negative); Ketones,Urine Negative (Negative); Leukocyte Esterase,Urine 2+ (Negative); PH,Urine 5.5 (5.0-8.5); Protein,Urine TRACE (Negative); Specific Gravity, Urine 1.015 (1.005-1.030)
[2019-03-07 10:47] LABS: Bacteria,Urine 1+ /lpf; WBC,Urine 20-50 #/hpf (0-3)
--- NOTE | 2019-03-08 07:59 | Progress Note ---
Internal Medicine - PN: Subj *Date: 03/08/19 *Time: 07:56 Interval history: Patient is doing well this morning. She ambulated more yesterday. O2 sats did decrease to 89% and oxygen was applied. SHe is still short of breath on exertion. She still has some right anterior lower rib cage discomfort but this has improved. She had a headache last night which was relieved with Toradol. She did sleep after this. Bowels have not moved. She is voiding QS. She has been afebrile. Awaiting urine cultures for possible UTI. Exam Vital signs and Labs for Last 24 Hours: Temp Pulse Resp BP Pulse Ox 97.8 F 75 18 115/50 L 94 L 03/08/19 04:00 03/08/19 04:00 03/08/19 04:00 03/08/19 04:00 03/08/19 04:00 Laboratory Results - last 24 hr 03/06/19 17:50: Urine Color Yellow, Urine Appearance Clear, Urine pH 5.5, Ur Specific [place] 1.015, Urine Protein Trace, Urine Glucose (UA) Negative, Urine Ketones Negative, Urine Blood 2+, Urine Nitrate Negative, Urine Bilirubin Negative, Urine Urobilinogen 1.0, Ur Leukocyte Esterase 2+ A, Urine RBC None, Urine WBC 20-50, Ur Squamous Epith Cells 3-5, Urine Bacteria 1+ 03/07/19 06:14: Hgb 10.7 L D I & O for Last 24 hours: Intake & Output 03/05/19 03/06/19 03/07/19 03/08/19 11:59 11:59 11:59 11:59 Intake Total 1931 1782 / 178 Output Total 200 / 200 Balance 1930 / 1930 1582 / 1582 Weight 213 lb 6 oz 213 lb 5.814 oz 215 lb 2 oz - Constitutional no acute distress Comments: Sitting on bedside eating her breakfast. - *Routine Respiratory Exam Comments: Much better air movement bilaterally. Few crackles in the right base. - *Routine Cardiovascular Exam Present: RRR - *Routine Abdominal Exam Present: soft, normoactive bowel sounds. Absent: tenderness - *Routine Extremities Exam Absent: edema, calf tenderness - *Routine Neurological Exam Present: alert, oriented X3 Assessment and Plan (1) Dyspnea Current visit: Yes Status: Acute Category: Medical Code(s): R06.00 - Dyspnea, unspecified (2) Pulmonary embolism, bilateral Current visit: Yes Status: Acute Category: Medical Code(s): I26.99 - Other pulmonary embolism without acute cor pulmonale (3) Chest pain Current visit: No Status: Acute Qualifiers: Chest pain type: unspecified Qualified Code(s): R07.9 - Chest pain, unspecified Category: Medical Code(s): R07.9 - Chest pain, unspecified (4) Chronic pain syndrome Current visit: No Status: Acute Category: Medical Code(s): G89.4 - Chronic pain syndrome (5) Essential hypertension Current visit: No Status: Acute Category: Medical Code(s): I10 - Essential (primary) hypertension (6) GERD (gastroesophageal reflux disease) Current visit: No Status: Acute Qualifiers: Esophagitis presence: with esophagitis Qualified Code(s): K21.0 - Gastro- esophageal reflux disease with esophagitis Category: Medical Code(s): K21.9 - Gastro-esophageal reflux disease without esophagitis (7) Hyperlipemia Current visit: No Status: Acute Category: Medical Code(s): E78.5 - Hyperlipidemia, unspecified (8) Hypothyroid Current visit: No Status: Acute Category: Medical Code(s): E03.9 - Hypothyroidism, unspecified (9) Peripheral edema Current visit: No Status: Acute Category: Medical Code(s): R60.9 - Edema, unspecified (10) Anemia Current visit: Yes Status: Acute Category: Medical Code(s): D64.9 - Anemia, unspecified - Assessment and plan all Dx Assessment and Plan for all problems:: Physical therapy did not come yesterday. We will reorder today. Continue with O2 as needed. Saline lock
--- NOTE | 2019-03-08 10:05 | Progress Note ---
Subjective Date: 03/08/19 Time: 10:00 Principal diagnosis: PE Interval history: This is an 83-year-old female who was admitted to the hospital with bilateral pulmonary emboli. She states overall that she is doing much better. She was taken off of oxygen yesterday but she did desaturate and have to be put back on oxygen. They are doing another trial this morning and she is currently off of oxygen. She is sitting up in a chair and she states that she has been walking to the bathroom without difficulty. Physical therapy is supposed to come in and evaluate the patient today. She denies any chest pain or pressure. She does complain of some right sided pain which is most likely from her pulmonary emboli. She denies any shortness of breath currently but states that she does get short of breath at times with exertion. This does improve with rest. She denies any fever, chills, nausea, vomiting, diarrhea. Of note, the patient does report that she had syncope 10 days ago. She states that she passed out suddenly with no warning and did lose consciousness. She was set up for a carotid ultrasound by Dr. Richards but this is not been completed and she is concerned that she may have blockages in her neck that were causing her syncopal episodes. She states that her shortness of breath initially started after she had this for syncope episode. Exam Vital signs and Labs for Last 24 Hours: Temp Pulse Resp BP Pulse Ox 97.8 F 75 18 115/50 L 94 L 03/08/19 04:00 03/08/19 04:00 03/08/19 04:00 03/08/19 04:00 03/08/19 04:00 Laboratory Results - last 24 hr 03/06/19 17:50: Urine RBC None, Urine WBC 20-50, Ur Squamous Epith Cells 3-5, Urine Bacteria 1+ I & O for Last 24 hours: Intake & Output 03/05/19 03/06/19 03/07/19 03/08/19 23:59 23:59 23:59 23:59 Intake Total 596 / 596 2520 / 2520 598 / 598 Output Total 1 200 / 200 Balance 596 / 596 2519 / 2319 398 / 398 Weight 213 lb 5.814 oz 213 lb 5.814 oz 215 lb 2 oz Microbiology Reports for the Last 24 Hours: Microbiology 03/06/19 17:50 Urine,Clean Catch Urine Culture - Final Multiple organisms, suggests contamination. 03/06/19 08:52 Blood Blood Culture - Preliminary NO GROWTH AFTER 48 HOURS 03/06/19 08:52 Blood Blood Culture - Preliminary NO GROWTH AFTER 48 HOURS - Constitutional no acute distress, obese - *Routine HEENT Exam Head: Present: normocephalic, atraumatic Eye: Present: EOMI, PERRL ENT: Present: mucous membranes moist - *Routine Neck Exam Present: supple, full ROM, normal carotid upstroke. Absent: JVD, carotid bruit, lymphadenopathy - *Routine Respiratory Exam Present: CTA bilaterally - *Routine Cardiovascular Exam Present: RRR, Normal S1, Normal S2 - *Routine Abdominal Exam Present: soft, normoactive bowel sounds. Absent: tenderness, distended - *Routine Extremities Exam Present: full ROM, pulses intact, normal capillary refill. Absent: cyanosis, clubbing, edema - *Routine Skin Exam Present: intact, warm. Absent: erythema, rash - *Routine Neurological Exam Present: alert, oriented X3, CN II-XII intact. Absent: sensory deficit, motor deficit - Detailed Eye Exam Eyelids: Left normal inspection Progress Note: A&P (1) Dyspnea Status: Acute Current Visit: Yes (2) Pulmonary embolism, bilateral Status: Acute Current Visit: Yes (3) Chronic pain syndrome Status: Acute Current Visit: No (4) Essential hypertension Status: Acute Current Visit: No (5) GERD (gastroesophageal reflux disease) Status: Acute Current Visit: No (6) Hyperlipemia Status: Acute Current Visit: No (7) Hypothyroid Status: Acute Current Visit: No (8) Peripheral edema Status: Acute Current Visit: No (9) Anemia Status: Acute Current Visit: Yes Assessment and Plan for All Diagnoses:: Plan: 1. The patient was admitted to the hospital and found to have bilateral pulmonary emboli. She is currently on Xarelto 15 mg p.o. twice daily. She will need to be on Xarelto 15 mg p.o. twice daily for 21 days and then convert to Xarelto 20 mg daily with supper thereafter. The patient will be on anticoagulation for at least 6 months. 2. The patient denies any chest pain or pressure. She states that she is having some right-sided pain which is most likely from her pulmonary emboli. Will defer this to her primary care provider. 3. Her blood pressure is well controlled. 4. Her LDL goal is less than 100. 5. Echocardiogram official interpretation is currently pending. 6. The patient is supposed to be working with physical therapy today. 7. The patient reports having episodes of syncope approximately 10 days ago. She was supposed to have a carotid ultrasound as recommended by Dr. Richards but this is not been completed. We will obtain a carotid ultrasound today due to recent syncope. 8. No further recommendations at this time from a cardiovascular standpoint. The patient reports that she sees Dr. Justin as a chief engineering division on an outpatient basis. We do recommend that she follow-up with Dr. Justin in 1 to 2 weeks on an outpatient basis. Thank you for the opportunity to help participate in the care of this patient.
--- NOTE | 2019-03-08 14:46 | Cardiology Report ---
APPROVED REPORT Application Security Specialist: AYANNA Laterality: Bilateral Study Quality: Good Indications: Syncope Risk Factors Hypertension: TIA/CVA History Hyperlipidemia Doppler Spectral Velocity Analysis ECA (R) 70.80/1.34 cm/sECA (L) 110.00/2.55 cm/s dICA (R) 94.20/15.40 cm/sdICA (L) 71.80/15.30 cm/s Josselyn (R) 68.80/18.00 cm/smICA (L) 73.00/17.00 cm/s pICA (R) 59.40/12.40 cm/spICA (L) 50.70/11.00 cm/s dCCA (R) 55.80/9.43 cm/sdCCA (L) 83.70/12.20 cm/s pCCA (R) 76.30/11.70 cm/spCCA (L) 100.00/12.60 cm/s Vert (R) 90.20/12.70 cm/sVert (L) 74.00/12.10 cm/s ICA/CCA 1.69 ICA/CCA 0.87 Findings Duplex evaluation demonstrates stenosis of the right proximal internal carotid artery in the range of 20-49% (UPPER END OF SCALE) with PSV <140 cm/sec, EDV <100 cm/sec, and IC/CC Ratio <4.0 worsened from exam on 08/05/12. Duplex evaluation demonstrates stenosis of the left proximal internal carotid artery <20% with PSV <140 cm/sec, EDV <100 cm/sec, and IC/CC Ratio <4.0.with PSV <140 cm/sec, EDV <100 cm/sec, and IC/CC Ratio <4.0. Antegrade flow seen bilateral vertebral arteries. Conclusion Duplex evaluation demonstrates stenosis of the right proximal internal carotid artery in the range of 20-49% (UPPER END OF SCALE) worsened from exam on 08/05/12. Duplex evaluation demonstrates stenosis of the left proximal internal carotid artery <20% . Antegrade flow seen bilateral vertebral arteries. Electronically signed by : Remigio Cook MD 03/08/2019 14:45:36
--- NOTE | 2019-03-09 08:25 | Progress Note ---
Internal Medicine - PN: Subj *Date: 03/09/19 *Time: 08:21 Interval history: Patient states she is feeling well this morning. She has less shortness of breath. She denies any pain other than in her right upper quadrant and it has improved since admission. She is stressed and anxious to go home today. She states she will need an oxygen concentrator and portable oxygen. Exam Vital signs and Labs for Last 24 Hours: Temp Pulse Resp BP Pulse Ox 98.3 F 79 20 129/58 L 95 03/09/19 03:45 03/09/19 03:45 03/09/19 03:45 03/09/19 03:45 03/09/19 03:45 I & O for Last 24 hours: Intake & Output 03/06/19 03/07/19 03/08/19 03/09/19 11:59 11:59 11:59 11:59 Intake Total 1931 / 1931 2142 / 214 490 / 490 Output Total 200 / 200 701 / 701 Balance 1930 / 1930 194 / 1941 -211 / -211 Weight 213 lb 6 oz 213 lb 5.814 oz 215 lb 2 oz 219 lb 9.004 oz Microbiology Reports for the Last 24 Hours: Microbiology 03/06/19 17:50 Urine,Clean Catch Urine Culture - Final Multiple organisms, suggests contamination. 03/06/19 08:52 Blood Blood Culture - Preliminary NO GROWTH AFTER 48 HOURS 03/06/19 08:52 Blood Blood Culture - Preliminary NO GROWTH AFTER 48 HOURS Radiology Reports for the Last 24 Hours: Carotid U/S Duplex evaluation demonstrates stenosis of the right proximal internal carotid artery in the range of 20-49% (UPPER END OF SCALE) worsened from exam on 08/05/12. Duplex evaluation demonstrates stenosis of the left proximal internal carotid artery <20% . Antegrade flow seen bilateral vertebral arteries. Echo - still pending Urine cx - mixed organisms - Constitutional no acute distress - *Routine Respiratory Exam Present: CTA bilaterally - *Routine Cardiovascular Exam Present: RRR - *Routine Abdominal Exam Present: soft, normoactive bowel sounds. Absent: tenderness - *Routine Extremities Exam Absent: cyanosis, clubbing, edema - *Routine Skin Exam Present: warm. Absent: rash - *Routine Neurological Exam Present: alert, oriented X3 Assessment and Plan (1) Dyspnea Current visit: Yes Status: Acute Category: Medical Code(s): R06.00 - Dyspnea, unspecified (2) Pulmonary embolism, bilateral Current visit: Yes Status: Acute Category: Medical Code(s): I26.99 - Other pulmonary embolism without acute cor pulmonale (3) Chronic pain syndrome Current visit: No Status: Acute Category: Medical Code(s): G89.4 - Chronic pain syndrome (4) Essential hypertension Current visit: No Status: Acute Category: Medical Code(s): I10 - Essential (primary) hypertension (5) GERD (gastroesophageal reflux disease) Current visit: No Status: Acute Qualifiers: Esophagitis presence: with esophagitis Qualified Code(s): K21.0 - Gastro- esophageal reflux disease with esophagitis Category: Medical Code(s): K21.9 - Gastro-esophageal reflux disease without esophagitis (6) Hyperlipemia Current visit: No Status: Acute Category: Medical Code(s): E78.5 - Hyperlipidemia, unspecified (7) Hypothyroid Current visit: No Status: Acute Category: Medical Code(s): E03.9 - Hypothyroidism, unspecified (8) Peripheral edema Current visit: No Status: Acute Category: Medical Code(s): R60.9 - Edema, unspecified (9) Anemia Current visit: Yes Status: Acute Category: Medical Code(s): D64.9 - Anemia, unspecified - Assessment and plan all Dx Assessment and Plan for all problems:: Urine culture showed mixed organisms. Carotid duplex has been reviewed. Patient's echo is still pending. She is anxious to be discharged. Will discuss with Dr. fox.
--- NOTE | 2019-03-09 09:15 | Progress Note ---
Subjective Date: 03/09/19 Time: 09:13 Principal diagnosis: PE Interval history: 83-year-old white female in bedside chair in no acute distress. Family relates patient has been walking without significant difficulty. Oxygen saturation at rest on room air is 93% but drops with ambulation. She will be going home with oxygen. She denies any chest pain, pressure or tightness. Exam Vital signs and Labs for Last 24 Hours: Temp Pulse Resp BP Pulse Ox 97.8 F 70 20 128/48 L 97 03/09/19 08:00 03/09/19 08:00 03/09/19 08:00 03/09/19 08:00 03/09/19 08:00 I & O for Last 24 hours: Intake & Output 03/06/19 03/07/19 03/08/19 03/09/19 11:59 11:59 11:59 11:59 Intake Total 1931 / 1931 2142 / 2141 730 / 730 Output Total 200 / 200 701 / 701 Balance 1930 / 1930 1941 / 1941 29 Weight 213 lb 6 oz 213 lb 5.814 oz 215 lb 2 oz 219 lb 9.004 oz Microbiology Reports for the Last 24 Hours: Microbiology 03/06/19 17:50 Urine,Clean Catch Urine Culture - Final Multiple organisms, suggests contamination. 03/06/19 08:52 Blood Blood Culture - Preliminary NO GROWTH AFTER 48 HOURS 03/06/19 08:52 Blood Blood Culture - Preliminary NO GROWTH AFTER 48 HOURS - *Routine HEENT Exam Head: Present: normocephalic Eye: Present: EOMI, PERRL ENT: Present: mucous membranes moist - *Routine Respiratory Exam Present: CTA bilaterally. Absent: accessory muscle use, rales, rhonchi, wheezes - *Routine Cardiovascular Exam Present: RRR. Absent: murmur, gallop, rubs - *Routine Extremities Exam Absent: edema, calf tenderness - *Routine Neurological Exam Present: alert, oriented X3, moving all extremities Progress Note: A&P (1) Dyspnea Status: Acute Current Visit: Yes (2) Pulmonary embolism, bilateral Status: Acute Current Visit: Yes (3) Chronic pain syndrome Status: Acute Current Visit: No (4) Essential hypertension Status: Acute Current Visit: No (5) GERD (gastroesophageal reflux disease) Status: Acute Current Visit: No (6) Hyperlipemia Status: Acute Current Visit: No (7) Hypothyroid Status: Acute Current Visit: No (8) Peripheral edema Status: Acute Current Visit: No (9) Anemia Status: Acute Current Visit: Yes Assessment and Plan for All Diagnoses:: Bilateral pulmonary emboli, currently on Xarelto 15 mg twice daily for a total of 21 days at which time she was then switched to 20 mg daily for at least 6 months. Patient being discharged home today follow-up in our office in 2 to 3 weeks after she has completed rehab therapy.
--- NOTE | 2019-03-09 15:56 | Cardiology Report ---
[facility] RADIOLOGICAL CONSULTATION Patient Name : TENA SHAVER X-RAY # : [id number] Physician: REANNA MCGEE AGE: 83Y : 1935 00:00:00 ( F ) Exam : CA ECHO DOPPLER COMPLETE ACC # : [id number] Study Date : 03/06/2019 08:46:50 Patient Class : E FINAL REPORT CLINICAL DATA: FINDINGS: IMPRESSION: Dictated by Flakita Underwood at 03/08/2019 12:52:26 PM Transcribed by at
--- NOTE | 2019-03-10 11:40 | Discharge Summary ---
General - General Admission date:: 03/06/19 Discharge date: 03/09/19 HPI HPI: Ms. Vidal is an 83-year-old female with a history of bronchitis, arthritis, colitis, pneumonia, COPD, asthma, gout, neuropathy, hyperlipidemia, allergies, hypertension, GERD, chronic pain, and peripheral edema who presented to [facility] emergency room after experiencing progressive shortness of breath with increasing midsternal chest pain radiating to her back for the past 2 days. She stated that the pain was so intense that she was unable to bear it any longer. In the emergency room d-dimer was found to be greater than 4000. CTA of the chest showed bilateral pulmonary emboli. She was thus admitted to the hospital and placed on a heparin drip. Patient was recently hospitalized from 02/24 to with shortness of breath. CTA of the chest at this admission was negative for PE although IV did infiltrate and contrast was not fully administered. She has since had an office visit and was being diuresed for the peripheral edema with Bumex. At time of this exam patient appears comfortable with nasal O2. She states the chest pain has lessened considerably. She is eating her lunch without any problems. Hospital Course Hospital Course: The patient's venous Doppler showed no evidence of DVT. She was started on a heparin drip and IV fluids. Some of her medications from home were reordered. Cardiology was consulted. They felt she could be transitioned to Xarelto 15 mg twice daily for 3 weeks and then would take Xarelto 20 mg daily thereafter. The patient did begin feeling better and had less shortness of breath. Xarelto was initiated. She did have decreased oxygen saturations with ambulation, therefore oxygen was applied. She had a headache and was given Toradol, which relieved the pain. The patient had previous syncopal episodes and was set up for carotid ultrasound outpatient, however this was not completed. A carotid ultrasound was therefore ordered inpatient. It showed stenosis of the right proximal internal carotid artery at a range of 20 to 49% and stenosis of the left proximal internal carotid artery of less than 20%. The patient's urine Culture came back with mixed organisms suggesting contamination. Her echo was still pending at the time of discharge but she was anxious to be discharged home. She was stable for discharge on Xarelto and will have oxygen set up at her home. She will f/u with Dr. Ellison and with Cardiology. Objective Vital signs: Temp Pulse Resp BP Pulse Ox 97.8 F 70 20 128/48 L 97 03/09/19 08:00 03/09/19 08:00 03/09/19 08:00 03/09/19 08:00 03/09/19 08:00 Narrative: Head: Present: normocephalic, atraumatic Eye: Present: PERRL ENT: Present: mucous membranes moist, oropharynx clear - *Routine Neck Exam Present: supple. Absent: carotid bruit, lymphadenopathy, thyromegaly - *Routine Respiratory Exam Present: diminished air movement (Posteriorly) - *Routine Cardiovascular Exam Present: RRR - *Routine Abdominal Exam Present: soft, normoactive bowel sounds. Absent: tenderness - *Routine Extremities Exam Present: edema (Trace bilaterally), pulses intact. Absent: calf tenderness, palpable cord, tenderness - *Routine Skin Exam Absent: cyanosis, erythema - *Routine Neurological Exam Present: alert, oriented X3 Results Labs on day of discharge: Preliminary micro results at discharge 03/06/19 08:52 Blood Culture - Preliminary Blood NO GROWTH AFTER 48 HOURS 03/06/19 08:52 Blood Culture - Preliminary Blood NO GROWTH AFTER 48 HOURS DS: Diagnosis - Discharge Diagnosis (1) Dyspnea Status: Acute (2) Pulmonary embolism, bilateral Status: Acute (3) Chronic pain syndrome Status: Acute (4) Essential hypertension Status: Acute (5) GERD (gastroesophageal reflux disease) Status: Acute (6) Hyperlipemia Status: Acute (7) Hypothyroid Status: Acute (8) Peripheral edema Status: Acute (9) Anemia Status: Acute Discharge Plan - Patient Discharge Instructions ACTIVITY: Limited activity DIET: continue same diet Patient Instructions: DI for Pulmonary Embolism, DI for Urinary Tract Infection (UTI) - Follow up Plan Follow up with: Abigail Ellison MD [Primary Care Provider] - 1 week Disposition: Home, Self-Halfway Medications: Home Medications Medication Instructions Recorded Confirmed Type allopurinol 300 mg tablet 300 mg PO DAILY 04/28/18 03/06/19 History aspirin 81 mg tablet,delayed 81 mg PO DAILY 04/28/18 03/06/19 History release coenzyme Q10 100 mg capsule 100 mg PO DAILY 04/28/18 03/06/19 History fentanyl 25 mcg/hr transdermal 1 patch TD Q72H 04/28/18 03/07/19 History patch ferrous sulfate 325 mg (65 mg 325 mg PO DAILY tab 04/28/18 03/06/19 History iron) tablet irbesartan 150 mg tablet 150 mg PO DAILY 04/28/18 03/06/19 History levothyroxine 25 mcg tablet 25 mcg PO DAILY 04/28/18 03/06/19 History mecobalamin (vitamin B12) 1,000 1,000 mcg SUBLINGUAL DAILY 04/28/18 03/06/19 History mcg disintegrating tablet,sublingual mirabegron ER 50 mg 50 mg PO DAILY 04/28/18 03/06/19 History tablet,extended release 24 hr montelukast 10 mg tablet 10 mg PO HS 04/28/18 03/06/19 History potassium chloride ER 10 mEq 10 meq PO DAILY 04/28/18 03/06/19 History tablet,extended release verapamil ER 240 mg 24 hr 240 mg PO DAILY 04/28/18 03/06/19 History capsule,extended release raNITIdine HCl [Zantac 150mg] 150 mg PO DAILY 05/01/18 03/06/19 History Doxercalciferol 0.5 mg PO DAILY 08/01/18 03/06/19 History Atorvastatin Calcium [Atorvastatin 10 mg PO HS 02/25/19 03/06/19 History 20mg Tab] Bumetanide 1 mg PO BID #0 02/25/19 03/06/19 Rx Dexlansoprazole [Dexilant] 30 mg PO DAILY 02/25/19 03/06/19 History Donepezil HCl [Aricept 10mg 10 mg PO HS 02/25/19 03/06/19 History tablet] Gabapentin 600 mg PO BID 02/25/19 03/06/19 History Polyethylene Glycol 3350 [Miralax 17 gm PO DAILY 02/25/19 03/06/19 History Powder] Albuterol Sulfate [Albuterol HFA 2 puffs INHALATION Q4HP PRN 03/07/19 03/07/19 History Inhaler] Levocetirizine Dihydrochloride 5 mg PO DAILY 03/07/19 03/07/19 History [Xyzal] Non Formulary [Pt's Own Medication] 1 each PO DAILY each 03/09/19 Rx Rivaroxaban [Xarelto 15mg tablet] 15 mg PO BIDWM #60 tab 03/09/19 Rx Prescriptions/Medication Reconciliation: New Rivaroxaban [Xarelto 15mg tablet] 15 mg PO BIDWM #60 tab Non Formulary [Pt's Own Medication] 1 each PO DAILY each Continued allopurinol 300 mg tablet 300 mg PO DAILY aspirin 81 mg tablet,delayed release 81 mg PO DAILY coenzyme Q10 100 mg capsule 100 mg PO DAILY levothyroxine 25 mcg tablet 25 mcg PO DAILY potassium chloride ER 10 mEq tablet,extended release 10 meq PO DAILY irbesartan 150 mg tablet 150 mg PO DAILY ferrous sulfate 325 mg (65 mg iron) tablet 325 mg PO DAILY tab montelukast 10 mg tablet 10 mg PO HS verapamil ER 240 mg 24 hr capsule,extended release 240 mg PO DAILY mecobalamin (vitamin B12) 1,000 mcg disintegrating tablet,sublingual 1,000 mcg SUBLINGUAL DAILY fentanyl 25 mcg/hr transdermal patch 1 patch TD Q72H mirabegron ER 50 mg tablet,extended release 24 hr 50 mg PO DAILY raNITIdine HCl [Zantac 150mg] 150 mg PO DAILY Doxercalciferol 0.5 mg PO DAILY Atorvastatin Calcium [Atorvastatin 20mg Tab] 10 mg PO HS Gabapentin 600 mg PO BID Polyethylene Glycol 3350 [Miralax Powder] 17 gm PO DAILY Levocetirizine Dihydrochloride [Xyzal] 5 mg PO DAILY Albuterol Sulfate [Albuterol HFA Inhaler] 2 puffs INHALATION Q4HP PRN PRN Reason: Shortness Of Breath Donepezil HCl [Aricept 10mg tablet] 10 mg PO HS Dexlansoprazole [Dexilant] 30 mg PO DAILY Bumetanide 1 mg PO BID #0 Discontinued conjugated estrogens 0.3 mg tablet 0.3 mg PO DAILY - Problem Reconciliation Problems Reviewed?: Yes
== END 2019-03-09 10:30 | disposition home or self-care (01) | DRG 176 ==
LOC: ER 08:13 → 2ND 11:28
PROVIDERS: ADMIT Family Medicine; ATTEND Family Medicine
CPT/HCPCS: 36415; 71020; 71046; 71275; 80048; 80053; 81001; 82150; 83605; 83690; 84484; 85025; 85378; 85610; 85730; 87040; 87086; 93005; 93306; 93880; 93970; 96365; 96375; 97161; 99284; J2405; Q9967